=== PATIENT | female | born 1955 | race Caucasian/White ===

== ENCOUNTER 2020-09-26 13:04 | Outpatient (REF) | payer MEDICARE, SELFPAY ==
--- NOTE | ~2020-09-26 | XR_ITS ---
EXAMINATION: XR HAND, LEFT CLINICAL INFORMATION: Fall, trauma, pain COMPARISON: None TECHNIQUE: PA, lateral, and oblique views of the left hand. FINDINGS: There is no fracture or dislocation. The ulnar variance is neutral. There is generalized osteopenia. Mild narrowing lateral carpus is noted at the triscaphe a joint and first carpometacarpal joint. There are variable joint narrowing involving the digits greatest PIP second and third finger and DIP joint second and third finger. 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 XR/XR hand LT min 3V IMPRESSION: 1. No fracture or dislocation. 2. Scattered arthropathy, greatest PIP and DIP joints second and third fingers.
--- NOTE | ~2020-09-26 | XR_ITS ---
EXAMINATION: XR FOOT, LEFT CLINICAL INFORMATION: Fall, trauma, pain COMPARISON: None TECHNIQUE: AP, lateral, and oblique views of the left foot. FINDINGS: There is generalized osteopenia. There is no acute or healing fracture dislocation or destructive process. The retrocalcaneal recess is preserved. No visible ankle capsular effusion. There is variable narrowing PIP and DIP joints without erosive change. There may be a small healed erosion medial base second toe proximal phalanx. XR/XR foot LT min 3V IMPRESSION: 1. Generalized osteopenia. No fracture or dislocation. 2. Variable narrowing PIP and DIP joints. Probable small healed avulsion medial base second toe proximal phalanx.
== END 2020-09-26 13:05 | disposition home or self-care (01) ==
LOC: HO.HMGCX 13:04
PROVIDERS: PCP Internal Medicine; Visit Provider Internal Medicine
DX: M79.672 Pain in left foot (principal); M79.642 Pain in left hand; Z91.81 History of falling
CPT/HCPCS: 73130; 73630

== ENCOUNTER 2020-10-19 10:00 | Outpatient (REF) | payer MEDICARE, SELFPAY ==
[2020-10-19 11:45] LABS: MANUAL DIFF FLAG NO
[2020-10-19 12:06] LABS: Basophils Absolute Auto 0.1 X10*3/uL (0.0-0.2); Basophils Percent Auto 1.3 % (0-2); Eosinophils Absolute Auto 0.3 X10*3/uL (0.0-0.4); Eosinophils Percent Auto 3.5 % (0-4); Hematocrit 37.4 % (37-47); Hemoglobin 11.8 g/dl (12.0-16.0); Imm Gran Abs Auto 0.02 X10*3/uL (0.00-0.03); Imm Gran Pct Auto 0.3 % (0.0-0.4); Lymphocytes Absolute Auto 1.2 X10*3/uL (1.2-4.9); Lymphocytes Percent Auto 16.7 % (20-40); Mean Corpuscular HGB Conc 31.6 g/dl (31.0-35.0); Mean Corpuscular Volume 95.2 fL (80-98); Mean Platelet Volume 10.1 fL (9.4-12.3); Monocytes Absolute Auto 0.5 X10*3/uL (0.1-1.2); Monocytes Percent Auto 6.9 % (2-11); Neutrophils Absolute Auto 5.1 X10*3/uL (2.0-8.3); Neutrophils Percent Auto 71.3 % (45-73); Platelet Count 267 X10*3/uL (160-400); Red Blood Count 3.93 X10*6/uL (4.20-5.50); Red Cell Distribution Width 12.9 % (11.0-16.0); White Blood Count 7.1 X10*3/uL (4.8-10.8)
[2020-10-19 12:21] LABS: Estimated Average Glucose 171 mg/dL; Hemoglobin A1c % 7.6 %
[2020-10-19 12:42] LABS: Free T4 (Free Thyroxine) 1.08 ng/dL (0.71-1.85); Thyroid Stimulating Hormone 2.06 uIU/mL (0.32-4.0)
[2020-10-19 12:56] LABS: Alanine Aminotransferase 12 U/L (0-31); Albumin Level 3.9 g/dL (3.5-5.0); Alkaline Phosphatase 92 U/L (39-117); Anion Gap 15 (12-20); Aspartate Amino Transferase 15 U/L (5-31); Bilirubin Total 0.6 mg/dL (0.0-1.0); Blood Urea Nitrogen 28 mg/dL (9-16); Carbon Dioxide 26 mmol/L (22-29); Chloride 106 mmol/L (96-108); Cholesterol 201 mg/dL; Estimated Glomerular Filt Rate 48; Glucose Random 124 mg/dL (60-115); HDL Cholesterol 81 mg/dL; LDL Cholesterol Calculated 111 mg/dl; Potassium 4.3 mmol/L (3.3-5.1); Sodium 143 mmol/L (135-145); Total Protein 7.2 g/dL (6.5-8.0); Triglycerides 48 mg/dL
== END 2020-10-19 10:01 | disposition home or self-care (01) ==
LOC: HO.HMGCLDS 10:00
PROVIDERS: PCP Internal Medicine; Visit Provider Internal Medicine
DX: R53.83 Other fatigue (principal); E03.9 Hypothyroidism, unspecified; E78.00 Pure hypercholesterolemia, unspecified
CPT/HCPCS: 36415; 80053; 80061; 83036; 84439; 84443; 85025

== ENCOUNTER 2022-04-03 11:00 | Outpatient (RCR) | payer MEDICARE, SELFPAY | END 2022-04-03 12:04 | disposition home or self-care (01) | LOC: HO.PT 11:00 | PROVIDERS: PCP Internal Medicine; Visit Provider Podiatrist | DX: S93.492S Sprain of other ligament of left ankle, sequela (principal) | CPT/HCPCS: 97110; 97112; 97140; 97162 ==

== ENCOUNTER 2022-07-17 08:51 | Outpatient (REF) | payer MEDICARE, SELFPAY ==
[2022-07-17 11:23] LABS: Hematocrit 39.6 % (37.0-47.0); Hemoglobin 12.6 g/dl (12.0-16.0); Mean Corpuscular HGB Conc 31.8 g/dl (31.0-35.0); Mean Corpuscular Hemoglobin 29.3 pg (27.0-33.0); Mean Corpuscular Volume 92.1 fL (80.0-98.0); Mean Platelet Volume 10.7 fL (9.4-12.3); Platelet Count 272 X10*3/uL (160-400); Red Cell Distribution Width 12.8 % (11.0-16.0); White Blood Count 8.4 X10*3/uL (4.8-10.8)
[2022-07-17 11:49] LABS: Estimated Average Glucose 243 mg/dL; Hemoglobin A1c % 10.1 %
[2022-07-17 12:18] LABS: Alanine Aminotransferase 12 U/L (0-31); Albumin Level 3.8 g/dL (3.5-5.0); Alkaline Phosphatase 84 U/L (39-117); Anion Gap 16 (12-20); Aspartate Amino Transferase 15 U/L (5-31); Bilirubin Total 0.6 mg/dL (0.0-1.0); Blood Urea Nitrogen 25 mg/dL (9-16); Calcium 9.3 mg/dL (8.4-10.2); Carbon Dioxide 25 mmol/L (22-29); Chloride 103 mmol/L (96-108); Cholesterol 249 mg/dL; Estimated Glomerular Filt Rate 53; Glucose Fasting 221 mg/dL (60-99); HDL Cholesterol 71 mg/dL; LDL Cholesterol Calculated 162 mg/dl; Potassium 4.4 mmol/L (3.3-5.1); Sodium 140 mmol/L (135-145); Triglycerides 84 mg/dL
[2022-07-17 12:24] LABS: Free T4 (Free Thyroxine) 1.26 ng/dL (0.71-1.85); Thyroid Stimulating Hormone 3.55 uIU/mL (0.32-4.0)
== END 2022-07-17 08:52 | disposition home or self-care (01) ==
LOC: HO.HMGCLDS 08:51
PROVIDERS: PCP Internal Medicine; Visit Provider Internal Medicine
DX: Z13.89 Encounter for screening for other disorder (principal)
CPT/HCPCS: 36415; 80053; 80061; 83036; 84439; 84443; 85027

== ENCOUNTER 2022-11-14 10:10 | Outpatient (REF) | payer MEDICARE, SELFPAY ==
[2022-11-14 11:31] LABS: Estimated Average Glucose 171 mg/dL; Hemoglobin A1c % 7.6 %
== END 2022-11-14 10:11 | disposition home or self-care (01) ==
LOC: HO.HMGCLDS 10:10
PROVIDERS: PCP Internal Medicine; Visit Provider Internal Medicine
DX: E11.9 Type 2 diabetes mellitus without complications (principal)
CPT/HCPCS: 36415; 83036

== ENCOUNTER 2022-12-04 11:22 | Outpatient (REF) | payer MEDICARE, SELFPAY ==
[2022-12-04 13:54] LABS: Cholesterol 219 mg/dL; HDL Cholesterol 84 mg/dL; LDL Cholesterol Calculated 122 mg/dl; Triglycerides 66 mg/dL
== END 2022-12-04 11:23 | disposition home or self-care (01) ==
LOC: HO.HMGCLDS 11:22
PROVIDERS: PCP Internal Medicine; Visit Provider Internal Medicine
DX: E03.9 Hypothyroidism, unspecified (principal)
CPT/HCPCS: 36415; 80061

== ENCOUNTER 2023-09-05 09:22 | Outpatient (REF) | payer MEDICARE, SELFPAY ==
[2023-09-05 10:25] LABS: MANUAL DIFF FLAG NO
[2023-09-05 10:45] LABS: Basophils Absolute Auto 0.1 X10*3/uL (0.0-0.2); Basophils Percent Auto 1.1 % (0-2); Eosinophils Absolute Auto 0.5 X10*3/uL (0.0-0.4); Eosinophils Percent Auto 6.3 % (0-4); Hematocrit 41.9 % (37.0-47.0); Hemoglobin 13.3 g/dl (12.0-16.0); Imm Gran Abs Auto 0.03 X10*3/uL (0.00-0.03); Imm Gran Pct Auto 0.4 % (0.0-0.4); Lymphocytes Absolute Auto 1.3 X10*3/uL (1.2-4.9); Lymphocytes Percent Auto 18.2 % (20-40); Mean Corpuscular HGB Conc 31.7 g/dl (31.0-35.0); Mean Corpuscular Hemoglobin 29.2 pg (27.0-33.0); Mean Corpuscular Volume 92.1 fL (80.0-98.0); Mean Platelet Volume 10.3 fL (9.4-12.3); Monocytes Absolute Auto 0.6 X10*3/uL (0.1-1.2); Monocytes Percent Auto 7.9 % (2-11); Neutrophils Absolute Auto 4.8 x10*3/uL (2.0-8.3); Neutrophils Percent Auto 66.1 % (45-73); Platelet Count 264 X10*3/uL (160-400); Red Blood Count 4.55 X10*6/uL (4.20-5.50); Red Cell Distribution Width 13.2 % (11.0-16.0); White Blood Count 7.3 X10*3/uL (4.8-10.8)
[2023-09-05 11:06] LABS: Estimated Average Glucose 177 mg/dL; Hemoglobin A1c % 7.8 % (<6.0)
[2023-09-05 11:11] LABS: Alanine Aminotransferase 13 U/L (0-31); Albumin Level 3.8 g/dL (3.5-5.0); Alkaline Phosphatase 90 U/L (39-117); Anion Gap 15 (12-20); Aspartate Amino Transferase 17 U/L (5-31); Bilirubin Total 0.3 mg/dL (0.0-1.0); Blood Urea Nitrogen 31 mg/dL (9-16); Calcium 9.4 mg/dL (8.4-10.2); Carbon Dioxide 24 mmol/L (22-29); Chloride 106 mmol/L (96-108); Cholesterol 219 mg/dL (<200); Estimated Glomerular Filt Rate 48; Glucose Fasting 242 mg/dL (60-99); HDL Cholesterol 72 mg/dL (>40); LDL Cholesterol Calculated 134 mg/dL (<100); Potassium 4.6 mmol/L (3.3-5.1); Sodium 140 mmol/L (135-145); Total Protein 7.5 g/dL (6.5-8.0); Triglycerides 69 mg/dL (<150)
[2023-09-05 11:31] LABS: Free T4 (Free Thyroxine) 0.97 ng/dL (0.71-1.85); Thyroid Stimulating Hormone 3.87 uIU/mL (0.32-4.0)
== END 2023-09-05 09:23 | disposition home or self-care (01) ==
LOC: HO.HMGCLDS 09:22
PROVIDERS: PCP Internal Medicine; Visit Provider Internal Medicine
DX: Z00.00 Encounter for general adult medical examination without abnormal findings (principal); E11.9 Type 2 diabetes mellitus without complications; R53.83 Other fatigue
CPT/HCPCS: 36415; 80053; 80061; 83036; 84439; 84443; 85025

== ENCOUNTER 2023-12-26 14:05 | Outpatient (REF) | payer MEDICARE, SELFPAY ==
[2023-12-26 16:26] LABS: Estimated Average Glucose 177 mg/dL; Hemoglobin A1c % 7.8 % (<6.0)
== END 2023-12-26 14:06 | disposition home or self-care (01) ==
LOC: HO.HMGCLDS 14:05
PROVIDERS: PCP Internal Medicine; Visit Provider Internal Medicine
DX: E11.9 Type 2 diabetes mellitus without complications (principal)
CPT/HCPCS: 36415; 83036

== ENCOUNTER 2024-05-05 10:12 | Outpatient (REF) | payer MEDICARE, SELFPAY ==
[2024-05-05 13:42] LABS: Estimated Average Glucose 154 mg/dL; Hemoglobin A1C 155.2492 umol/L; Total Hemoglobin (HGBA1C) 2930.7994 umol/L
== END 2024-05-05 10:13 | disposition home or self-care (01) ==
LOC: HO.HMGCLDS 10:12
PROVIDERS: PCP Internal Medicine; Visit Provider Internal Medicine
DX: E11.9 Type 2 diabetes mellitus without complications (principal)
CPT/HCPCS: 36415; 83036

== ENCOUNTER 2024-08-27 09:42 | Outpatient (REF) | payer MEDICARE, SELFPAY ==
--- OUTSIDE RECORDS SUMMARY | 2024-08-27 10:14 | XMS_ITS ---
[facility] Address [address] [place] [address] Care Team Providers Care Buttonhole Maker Name Role Phone Nic Mcghee MD Primary Care Provider Unavailab Lucy Sprague Unavailable [phone] Demetrius Whiteside Unavailable [phone] Allergies No Known Allergies REASON FOR VISIT Foot pain Medications Medication SIG (Take, Route, Frequency, Duration) Notes Start Date End Date Status Extra Depth Diabetic Shoes with 3 Pair Custom heat-molded multi-density innersoles for 1 year Dx: Active Zinc Active Levoxyl Active Physical Therapy . . . 2-3x/week for 3- 4 weeks Active Insulin 12 units Active Vitamin D3 Active Social History Tobacco Use: Social History Observation Description Date Details (start date - stop date) Never Smoker NA - NA Tobacco Use/Smoking Question Answer Notes Are you a: nonsmoker Additional Findings: Tobacco Non-User Current no n-smoker Alcohol Screen Question Answer Notes Did you have a drink containing alcohol in the p ast year? No Points 0 Interpretation Negative Tobacco use other than smoking: Question Answer Notes Are you an other tobacco user? No Vital Signs Height 6 ft in 12/03/2023 Weight 240 lbs 12/03/2023 BMI 32.55 kg/m2 12/03/2023 Blood pressure systolic 120 mm Hg 12/03/19 24 Blood pressure diastolic 80 mm Hg 024 Encounters Encounter Location Date Provider Diagnosis [facility] [address] [place] [address] 12/03/2023 Demetrius Whiteside Type 1 diabetes mellitus with diabetic polyneuropathy E10.42 ; Pain in left toe(s) M79.675 ; Pain in left foot M79.672 ; Lymphedema I89.0 and Contusion of left foot, initial encounter S90.32XA Assessments Encounter Date Diagnosis (ICD Code) Assessment Notes Treatment Notes Treatment Clinical Notes Section Notes 12/03/2023 Type 1 diabetes mellitus with diabetic polyneuropathy (ICD-10 - E10.42) 12/03/2023 Pain in left toe(s) (ICD-10 - M79.675) 12/03/2023 Pain in left foot (ICD-10 - M79.672) 12/03/2023 Lymphedema (ICD-10 - I89.0) 12/03/2023 Contusion of left foot, initial encounter (ICD-10 - S90.32XA) Plan Of Treatment Medication Medication Name Sig Start Date Stop Date Notes Extra Depth Diabetic Shoes w ith 3 Pair Custom heat-molded multi-density innersoles for 1 year Dx: Pending Test Test Name Order Date X ray : Foot, left 3V 12/03/2023 Next Appt Details Follow Up: prn, Reason: Provider Name:Demetrius Whiteside, 10/27/2024 10:15:00 AM, [address] [place] [address], [id number], Provider Name:Lucy walker, 10/28/2024 10:00:00 AM, [address] [place] [address], [id number], Progress Notes * Jossie YEBOAHDOB:[birth year] (68 yo F)Acc No.[id number]:12/03/2023 Progress Note Patient:?Jossie Yeboah Provider:?Demetrius Whiteside DPM :1955???Age:68 Y???Sex:Female D ate:12/03/2023 Address:[address] [place], [id number] Pcp:Nic Mcghee MD Subjective: * Chief Complaints: * ???Foot pain * HPI: ???Foot Pain:?Nature:?swelling, tenderness, brusing.?Location?Great toe joint, Left .?Duration:?1-2 days.?Onset/Cause:?trauma [ stubbed toe against curbing on 12/01/23].?Course:?worse.?Aggrevated:?any pressure.?Treatments:?rest.?Quality/Severity?moderate, severe.? pt seen urgently today. * ROS:?General/Constitutional:?Nausea?denies, denies.?Vomiting?denies, denies.?Hunger Thirst?denies, denies.?Loss appetite?denies, denies.?Chills?denies, denies.?Fatigue?denies, denies.?Fever?denies, denies.?Night Sweats denies, denies.?Unexplained weight loss?denies, denies.?Unexplained weight gain?denies.?Ophthalmologic:?Blurred vision?denies.?Red eye?denies.?HEENTM:?Dentures?denies, denies.?Dizziness?denies, denies.?Glasses/contacts?admits, denies.?Retinopathy?denies, denies.?Blurred/double vision?denies, denies.?TMJ?denies, denies.?Discharge/drainage?denies, denies.?Implants?denies, denies.?Sore throat?denies.?Dental implants?denies.?Hard of hearing ?denies, denies.?Difficulty chewing/swallowing/speaking?denies, denies.?Nose bleeds?denies, denies.?Sore mouth?denies, denies.?Swollen glands?denies.?Respiratory:?On Oxygen?denies, denies.?Pneumonia/pleurisy?denies, denies.?Bronchitis?denies, denies.?Emphysema?denies, denies.?Coughing?denies, denies.?Cough blood?denies, denies.?Shortness of breath?denies, denies.?Wheezing?denies, denies.?Cardiovascular:?Pacemaker?denies, denies.?MVP?denies, denies.?WPW?denies, denies.?CHF?denies, denies.?Heart attack?denies, denies.?Septal defect?denies, denies.?Rapid beat?denies, denies.?Chest pain ?denies, denies.?Atrial Fib.?denies, denies.?Murmur/Palpitations?denies, denies.?Gastrointestinal:?Hemorrhoids?denies, denies.?Stomach/Abdominal pain?denies, denies.?Dark blood stool?denies, denies.?Irritable bowel ?denies, denies.?Constipation?denies, denies.?Diarrhea?denies, denies.?Vomiting?denies.?Hematology:?Swelling?denies, denies.?Clots?denies.?Varicose Veins?denies.?Bruising?denies, denies.?Bleeding problem?denies, denies.?Genitourinary:?Blood urine?denies, denies.?Frequent/Painfu/urination/bladder control?denies, denies.?Kidney stones?denies, denies.?Infection (UTI)?denies, denies.?Nephropathy?denies, denies.?sex trans dis (STD)?denies.?Prostate?denies.?Musculoskeletal:?Hammertoes?denies, denies.?Bunions?denies, denies.?Scoliosis/kyphosis?denies.?Back Pain?denies.?Muscle Cramps/ Resting?denies.?Muscle cramps / walking?denies, denies.?Generalized aches and pains?denies, denies.?Weakness?denies, denies.?Integ.:?Kitchen?denies, denies.?Scars?denies, denies.?Corns/calluses?denies, denies.?Ingrown nails?denies, denies.?Painful nails?denies, denies.?Open Sores?denies.?Rashes?denies, denies.?Neurologic:?Difficulty sleeping?denies, denies.?Bipolar?denies.?Brain disorder?denies, denies.?Numbness?denies.?Balance trouble?denies, denies.?Confusion?denies, denies.?Fainting/blackouts?denies, denies.?Headache?denies.?Tingling?denies.?Tremors?denies, denies.? * Medical History:? * Surgical History:?infection 01/29/2019dental 06/2021 * Hospitalization/Major Diagno stic Procedure:?Denies Past Hospitalization * Family History:?Mother: dece ased.?Father: .? * Social History:?Tobacco Use:?Tobacco Use/Smoking?Are you a:?nonsmoker ?Additional Findings: Tobacco Non-User?Current non-smoker ?Tobacco use other than smoking?Are you an other tobacco user??No ???Drugs/Alcohol:?Drugs?Have you used drugs other than those for medical reasons in the past 12 months??No ?Alcohol Screen?Did you have a drink containing alcohol in the past year??No ?Points?0 ?Interpretation?Negative ???Miscellaneous:?Caffeine: yes, coffee, frequency: unknown. ?Exercise: hght walking. ?Marital status: . ?Occupation: retired. * Medications:?TakingExtra Dep th Diabetic Shoes with 3 Pair Custom heat-molded multi-density innersoles for 1 year Dx:Physical Therapy . . . . 2-3x/weekInsulin , Notes: 12 unitsLevoxyl Vitamin D3 Zinc Medication List reviewed and reconciled with the patientTaking Extra Depth Diabetic Shoes with 3 Pair Custom heat-molded multi-density innersoles for 1 year Dx:Taking Physical Therapy . . . . 2-3x/weekTaking Insulin , Notes: 12 unitsTaking Levoxyl Taking Vitamin D3 Taking Zinc Medication List reviewed and reconciled with the patient * Allergies:?N.K.D.A.yes[Aller gies Verified] Objective: * Vitals:?Ht: 6 ft, Wt:240, BM I:32.55, Shoe size:11, BP:120/80 mm Hg, BS:140. * ???Past Orders: ???Lab:HEMOGLOBIN A1C (GLYCO HEMOGLOBIN) (Order Date - 10/27/2023) (Collection Date - 08/19/2023) ? Value Reference Range ?HEMOGLOBIN A1C (HH) 7.8 * Examination: ???Ophthalmology Referral: ?DIABETES EYE EXAM?Diabetic Retinopathy Screening:?No 2018?Neurological: ?SENSORY:? Neurological exam demonstrates, reduced light touch sensation, reduced sharp/dull pin prick discrimination , reduced vibration sensation, 5.07 monofilament test performed at plantar aspects of 5 varied sites per foot shows sensation, reduced , at Forefoot, at Midfoot, B/L, Neurological exam demonstrates pop dorsum left first mtpj with extensive bruising and edema noted.?TINEL'S COMPRESSION:?Negative tarsal tunnel, shai pedis, and medial calcaneal nerves B/L.?BABINSKI REFLEX:?absent.?Vascular: ?DP PULSES:? 0/4, B/L.?PT PULSES:? 0/4, B/L.?CAPILLARY FILL TIME:?3 secs. per digit, B/L.?SKIN TEMPERTURE GRADIENT OF THE LOWER EXTERMITIES:?warm to cool, proximal to distal, B/L.?HAIR GROWTH/TEXTURE/ELASTICITY/TURGOR:?normal, B/L.?PIGMENTATION:?normal, B/L.?EDEMA:? 3/4, non-pitting, B/L, Feet, Ankle(s), Leg(s).?TELANGECTASIA:?absent.?VARICOSITIES:?absent.?Nails: ?NAILS are:?Elongated, overgrown, dystrophic, lytic, greater than 3mm thick, discolored and friable with crumbly malodorous subungual debris, with dull to no pain on palpation due to neuropathy, 1-5 B/L.?Dermatologic: ?SKIN FINDINGS:? Skin exam reveals Keratotic lesion(s) located at, Plantar, SUB MTH (s), 5, Left , Skin exam reveals Keratotic lesion(s) located at, SUB MTH (s), 1, 5, Right , Skin shows sign(s) of, bruising and swelling left first mtpj with skin intact.?General Examination: ?GENERAL APPEARANCE:?pleasant, alert, well nourished, well developed, well hydrated, with good attention to hygene/body habitus, and in no acute distress.?ORIENTED:?person,place, and time.?FOOT EXAM:?Lower Extremity Neurological Exam performed:?Yes ?Visual exam of foot performed:?Yes ?Date?10/27/2023 ?Sensory testing performed:?sensations diminished ?Pedal pulse taking performed:?absent?Neuroma Pain: ?PALPATION:?No interspace pain noted on palpation.?Orthopedic: ?MUSCLE STRENGTH:?5/5 all groups in a symmetrical fashion , B/L.?FOOT MORPHOLOGY:? Pes Planus structure, LEFT.?TAILOR'S BUNION:? Prominent, painful, inflammed 5th MTH/MPJ, LEFT.?X-Rays - IMAGING REPORT: ?Clinical Indication(s):? Evaluate for Fracture.?Views:? 3 views of Foot, LEFT.?Findings:? dorsal degenerative changes of the tarsal joints.?Foot structure:? reveals excess pronation with, anterior break in cyme line.?Fracture:? Negative fractures identified.? Assessment: * Assessment: 1.?Pain in left toe(s) - M79 .675?2.?Type 1 diabetes mellitus with diabetic polyneuropathy - E10.42 (Primary)?3.?Pain in left foot - M79.672?4.?Lymphedema - I89.0?5.?Contusion of left foot, initial encounter - S90.32XA? Plan: * Treatment: 2.?Pain in left foot?Imaging: X ray : Foot, left 3V * Procedure Codes:?46803 X-RAY EXAM OF LEFT FOOT 3V, Modifiers: 26 , LT * Preventive Medicine:? ??Counseling:?Discussion:?-14: Office or other outpatient visit for the evaluation and management of an established patient, which required a medically appropriate history and/or examination and MODERATE level of DECISION MAKING for: 1 OR MORE CHRONIC PROBLEM(S) THATS WORSENING, 2 STABLE CHRONIC PROBLEMS, A NEWLY DIAGNOSED PROBLEM WITH UNCERTAIN PROGNOSIS, AN ACUTE COMPLICATED INJURY WITH MULTIPLE TREATMENT OPTIONS, OR AN ACUTE PROBLEM WITH ACCOMPANYING SYSTEMIC SYMPTOMS, THAT POSE(S) A MODERATE RISK OF MORBIDITY. THIS CONDITION MAY ALSO INCLUDE RX DRUG MANAGEMENT, OR A DECISON FOR MINOR SURGERY. The visit on the day of the encounter encompassed interpreting the data and educating the patient as to the nature of their condition, treatment options available according to their individual PMH, meds, allergies, and overall health/living conditions, as well as any potential risks or complications that may occur from a failure to adhere to, and participate in, the recommended course of therapy. The discussion included a complete verbal, and/or written explanation of the examination results, any x-rays taken, the proposed diagnosis, and outline of the treatment plan. A schedule for future care needs was also explained. The patient verbalized an understanding of the instructions at this time and agreed to be an active participant in their treatment. If the patient should think of any questions or concerns after the visit, I have encouraged the patient to call the office.?P.R.I.C.E.:?The patient was counseled on the use of P.R.I.C.E. and NSAIDS (if well tolerated) to aid in the recovery from their painful condition.? * Follow Up:?prn * Images: * Sign off status: Completed true * Provider:?Demetrius Whiteside DPM Date:? 024 Generated for Jose alfonso/Cee/Antonieta on:?08/27/2024 10:14 AM EDT History and Physical Notes * HPI (History of Present Illness) Category Sub-Category Detail Notes Category Not es Foot Pain Aggrevated: any pressure pt seen urgent ly today Onset/Cause: trauma [ stubbed toe against curbing on 12/01/23] Course: worse Duration: 1-2 days Nature: swelling, tenderness , brusing Treatments: rest Quality/Severity moderate, severe Location Great toe joint, Lef t Examination Category Sub-Category Detail Notes Category Not es Neuroma Pain PALPATION: No interspace pain noted on palpation Neurological SENSORY: Neurological exa m demonstrates, reduced light touch sensation, reduced sharp/dull pin prick discrimination , reduced vibration sensation, 5.07 monofilament test performed at plantar aspects of 5 varied sites per foot shows sensation, reduced , at Forefoot, at Midfoot, B/L, Neurological exam demonstrates pop dorsum left first mtpj with extensive bruising and edema noted BABINSKI REFLEX: absent TINEL'S COMPRESSION: Negative tarsal daya brenda, shai pedis, and medial calcaneal nerves B/L Dermatologic SKIN FINDINGS: Skin exam reveal s Keratotic lesion(s) located at, Plantar, SUB MTH (s), 5, Left , Skin exam reveals Keratotic lesion(s) located at, SUB MTH (s), 1, 5, Right , Skin shows sign(s) of, bruising and swelling left first mtpj with skin intact Orthopedic FOOT MORPHOLOGY: Pes Planus structure, LE FT TAILOR'S BUNION: Prominent, painful, inflammed 5th MTH/MPJ, LEFT MUSCLE STRENGTH: 5/5 all groups in a symmetrical fashion , B/L General Examination GENERAL APPEARANCE: pleasant , alert, well nourished, well developed, well hydrated, with good attention to hygene/body habitus, and in no acute distress FOOT EXAM: Lower Extremity Neurological Exa m performed:: Yes Visual exam of foot performed:: Yes Date: 10/27/2023 Sensory testing performed:: sensations d iminished Pedal pulse taking performed:: absent ORIENTED: person,place, and ti me Ophthalmology Referral DIABETES EYE EXAM Diabetic Reti nopathy Screening:: No 2017 Vascular DP PULSES (B): 0/4, B/L PT PULSES (B): 0/4, B/L CAPILLARY FILL TIME: 3 secs. per digit, B/L TEMPERTURE GRADIENT (C): warm to cool, p roximal to distal, B/L TROPHIC CONDITION-TEXTURE/ELASTICITY/TURGOR/HAIR GROWTH (B): normal, B/L EDEMA (C): 3/4, non-pitting, B/ L, Feet, Ankle(s), Leg(s) TELANGECTASIA: absent VARICOSITIES: absent PIGMENTATION: normal, B/L Nails NAILS are: Elongated, overg rown, dystrophic, lytic, greater than 3mm thick, discolored and friable with crumbly malodorous subungual debris, with dull to no pain on palpation due to neuropathy, 1-5 B/L X-Rays - IMAGING REPORT Findings: dorsal d egenerative changes of the tarsal joints Fracture: Negative fractures i dentified Foot structure: reveals excess prona tion with, anterior break in cyme line Views: 3 views of Foot, LEF T Clinical Indication(s): Evaluate for Fra cture
--- OUTSIDE RECORDS SUMMARY | 2024-08-27 10:14 | XMS_ITS ---
[facility] Organization [facility] Address [address] [place] [address] Care Team Providers Care Leather Toggler Name Role Phone Nic Mcghee MD Primary Care Provider Unavailab Lucy Sprague Unavailable [phone] Demetrius Whiteside Unavailable [phone] Allergies No Known Allergies REASON FOR VISIT Painful nail(s) aggrevated by shoes and causing difficulty standing/walking. Medications Medication SIG (Take, Route, Frequency, Duration) Notes Start Date End Date Status Physical Therapy . . . 2-3x/week for 3- 4 weeks Active Insulin 12 units Active Levoxyl Active Zinc Active Extra Depth Diabetic Shoes with 3 Pair Custom heat-molded multi-density innersoles for 1 year Dx: Active Vitamin D3 Active Social History Tobacco [...] No Vital Signs Height 6 ft in 10/27/2023 Weight 240 lbs 10/27/2023 BMI 32.55 kg/m2 10/27/2023 Blood pressure systolic 120 mm Hg 10/27/19 24 Blood pressure diastolic 80 mm Hg 024 Encounters Encounter Location Date Provider Diagnosis [facility] [address] [place] [address] 10/27/2023 Demetrius Whiteside Type 1 diabetes mellitus with diabetic polyneuropathy E10.42 ; Pain in right toe(s) M79.674 ; Tinea unguium B35.1 ; Pain in left toe(s) M79.675 ; Pain in left foot M79.672 ; Pain in right foot M79.671 and Lymphedema I89.0 Assessments Encounter Date Diagnosis (ICD Code) Assessment Notes Treatment Notes Treatment Clinical Notes Section Notes 10/27/2023 Type 1 diabetes mellitus with diabetic polyneuropathy (ICD-10 - E10.42) 10/27/2023 Pain in right toe(s) (ICD-10 - M79.674) 10/27/2023 Tinea unguium (ICD-10 - B35.1) 10/27/2023 Pain in left toe(s) (ICD-10 - M79.675) 10/27/2023 Pain in left foot (ICD-10 - M79.672) 10/27/2023 Pain in right foot (ICD-10 - M79.671) 10/27/2023 Lymphedema (ICD-10 - I89.0) Plan Of Treatment Medication Medication Name Sig Start Date Stop Date Notes Physical Therapy . . . 2-3x/week for 3- 4 weeks Extra Depth Diabetic Shoes w ith 3 Pair Custom heat-molded multi-density innersoles for 1 year Dx: Next Appt Details Follow Up: 1 Year, Reason: Provider Name:Demetrius Meme Whiteside, 10/27/2024 10:15:00 AM, [address] [place] [address], [phone], Provider Name:Lucy walker, 10/28/2024 10:00:00 AM, [address] [place] [address], [phone], Procedure Notes * Category Sub-Category Detail Notes Debride Nail 6-10 Nail debridement Nail debridem ent performed extensively to reduce/remove overall nail length and girth, subungual debris, and necrotic tissue, by manual and electrical means with use of a nail nipper and/or dremel, to more viable healthy nail plate or bed tissue 6-10. Silver nitrate used for any petechial bleeding as necessary. Patient chooses, no pharmaceutical tx (12583) Keratoma Treatment Parring or Cutting o f Benign Hyperkeratotic Lesion(s) 83565 (2-4 Lesions) - The Benign hyperkeratotic lesions, as described above were pared, and/or cut utilizing a sterile #15 blade, tissue nippers, and/or dremel Progress Notes * Jossie YEBOAHDOB:[birth year] (68 yo F)Acc No.[id number]:10/27/2023 Progress Note Patient:?Jossie Yeboah Provider:?Demetrius Whiteside DPM :1955???Age:68 Y???Sex:Female D ate:10/27/2023 Address:[address] [place], [place] Pcp:Nci Mcghee MD Subjective: * Chief Complaints: * ??? Painful nail(s) aggrevat ed by shoes and causing difficulty standing/walking. * HPI: ???At Risk footcare:?Pt States Last PCP Visit:?Date?08/21/2022 ???Foot Pain:?Nature:?tenderness, throbbing.?Location?Outside, Forefoot, Left .?Duration:?several years.?Course:?improved.?Aggrevated:?comp stockings.?Treatments:?comp stockings, physical therapy.?Quality/Severity?mild.? * ROS:?General/Constitutional:?Nausea?denies.?Vomiting?denies.?Hunger Thirst?denies.?Loss appetite?denies.?Chills?denies.?Fatigue?denies.?Fever?denies.?Night Sweats?denies.?Unexplained weight loss?denies.?Unexplained weight gain?denies.?HEENTM:?Dentures?denies.?Dizziness?denies.?Glasses/contacts?admits.?Retinopathy?de nies.?Blurred/double vision?denies.?TMJ?denies.?Discharge/drainage?denies.?Implants?denies.?Sore throat?denies.?Dental implants?denies.?Hard of hearing ?denies.?Difficulty chewing/swallowing/speaking?denies.?Nose bleeds?denies.?Sore mouth?denies.?Respiratory:?On Oxygen?denies.?Pneumonia/pleurisy?denies.?Bronchitis?denies.?Emphysema?denies.?C oughing?denies.?Cough blood?denies.?Shortness of breath?denies.?Wheezing?denies.?Cardiovascular:?Pacemaker?denies.?MVP?denies.?WPW?denies.?CHF?denies.?Heart attack?denies.?Septal defect?denies.?Rapid beat?denies.?Chest pain ?denies.?Atrial Fib.?denies.?Murmur/Palpitations?denies.?Gastrointestinal:?Hemorrhoids?denies.?Stomach/Abdominal pain?denies.?Dark blood stool?denies.?Irritable bowel ?denies.?Constipation?denies.?Diarrhea?denies.?Hematology:?Swelling?denies.?Clots?denies.?Varicose Veins?denies.?Bruising?denies.?Bleeding problem?denies.?Genitourinary:?Blood urine?denies.?Frequent/Painfu/urination/bladder control?denies.?Kidney stones?denies.?Infection (UTI)?denies.?Nephropathy?denies.?sex trans dis (STD)?denies.?Prostate?denies.?Musculoskeletal:?Hammertoes?denies.?Bunions?denies.?Back Pain?denies.?Muscle Cramps/ Resting?denies.?Muscle cramps / walking?denies.?Generalized aches and pains?denies.?Weakness?denies.?Integ.:?Kitchen?denies.?Scars?denies.?Corns/calluses?denies.?Ingrown nails?denies.?Painful nails?denies.?Open Sores?denies.?Rashes?denies.?Neurologic:?Difficulty sleeping?denies.?Brain disorder?denies.?Numbness?denies.?Balance trouble?denies.?Confusion?denies.?Fainting/blackouts?denies.?Tingling?denies.?Tr emors?denies.? * Medical History:? * Surgical History:?infection 01/29/2019dental 06/2021 * Hospitalization/Major Diagno stic Procedure:?Denies Past Hospitalization * Family History:?Mother: dece ased.?Father: .? * Social History:?Tobacco Use:?Tobacco Use/Smoking?Are you a:?nonsmoker ?Additional Findings: Tobacco Non-User?Current non-smoker ?Tobacco use other than smoking?Are you an other tobacco user??No ???Miscellaneous:?Caffeine: yes, coffee, frequency: unknown. ?Exercise: hght walking. ?Marital status: . ?Occupation: retired. * Medications:?TakingInsulin , Notes: 12 unitsLevoxyl Vitamin D3 Zinc Extra Depth Diabetic Shoes with 3 Pair Custom heat-molded multi-density innersoles for 1 year Dx:Physical Therapy . . . . 2-3x/weekMedication List reviewed and reconciled with the patientTaking Insulin , Notes: 12 unitsTaking Levoxyl Taking Vitamin D3 Taking Zinc Taking Extra Depth Diabetic Shoes with 3 Pair Custom heat-molded multi-density innersoles for 1 year Dx:Taking Physical Therapy . . . . 2-3x/weekMedication List reviewed and reconciled with the patient * Allergies:?N.K.D.A.yes[Aller gies Verified] Objective: * Vitals:?Ht: 6 ft, Wt:240, BM I:32.55, Shoe size:11, BP:120/80 mm Hg, BS:88. * ???Past Orders: ???Lab:HEMOGLOBIN A1C (GLYCO HEMOGLOBIN) [...] at Midfoot, B/L, Neurological exam demonstrates pop AL left ankle.?TINEL'S COMPRESSION:?Negative tarsal tunnel, shai pedis, and medial [...] at, SUB MTH (s), 1, 5, Right .?General Examination: ?GENERAL APPEARANCE:?pleasant, alert, well nourished, well [...] LEFT.?TAILOR'S BUNION:? Prominent, painful, inflammed 5th MTH/MPJ, LEFT.? Assessment: * Assessment: 1.?Type 1 diabetes mellitus with diabetic polyneuropathy - E10.42?2.?Pain in right toe(s) - M79.674?3.?Pain in left toe(s) - M79.675?4.?Tinea unguium - B35.1 (Primary)?5.?Pain in left foot - M79.672?6.?Pain in right foot - M79.671?7.?Lymphedema - I89.0? Plan: * Treatment: 2.?Others? Start Physical Therapy ., ., ., ., 2-3x/week, 3-4 weeks, Dx:, Refills ..?? * Procedures:?Debride Nail 6-10:?Nail debridement?Nail debridement performed extensively to reduce/remove overall nail length and girth, subungual debris, and necrotic tissue, by manual and electrical means with use of a nail nipper and/or dremel, to more viable healthy nail plate or bed tissue 6-10. Silver nitrate used for any petechial bleeding as necessary. Patient chooses, no pharmaceutical tx (78410).?Keratoma Treatment:?Parring or Cutting of Benign Hyperkeratotic Lesion(s)?93694 (2-4 Lesions) - The Benign hyperkeratotic lesions, as described above were pared, and/or cut utilizing a sterile #15 blade, tissue nippers, and/or dremel.? * Procedure Codes:?13166 DEBRI DE NAIL, 6 OR MORE, Modifiers: XS 74232 TRIM SKIN LESIONS, 2 TO 4, Modifiers: XS * Preventive Medicine:? ??Counseling:?Discussion:?-13: Office or other outpatient visit for the evaluation and management of an established patient, which required a medically appropriate history and/or examination and LOW level of DECISION MAKING for: 1 STABLE ACUTE UNCOMPLICATED PROBLEM, 2 OR MORE MINOR PROBLEMS, OR 1 STABLE CHRONIC PROBLEM, THAT POSE(S) A LOW RISK FOR MORBIDITY/MORTALITY. The visit on the day of the [...] have encouraged the patient to call the office.? * Follow Up:?1 Year * Images: * Sign off status: Completed true * Provider:?Demetrius Whiteside DPM Date:? 024 Generated for Printi ng/Faannalisag/eTransmitting on:?08/27/2024 10:14 AM EDT History and Physical Notes * HPI (History of Present Illness) Category Sub-Category Detail Notes Category Not es At Risk footcare Pt States Last PCP Visit: Date: 3 Foot Pain Aggrevated: comp stockings Course: improved Duration: several years Nature: tenderness, throbbin g Treatments: comp stockings, phys ical therapy Quality/Severity mild Location Outside, Forefoot, L eft Examination Category Sub-Category Detail Notes Category Not es Neuroma Pain PALPATION: No interspace pain noted on palpation Neurological SENSORY: Neurological exa m demonstrates, reduced light touch sensation, reduced sharp/dull pin prick discrimination , reduced vibration sensation, 5.07 monofilament test performed at plantar aspects of 5 varied sites per foot shows sensation, reduced , at Forefoot, at Midfoot, B/L, Neurological exam demonstrates pop AL left ankle BABINSKI REFLEX: absent TINEL'S COMPRESSION: Negative tarsal daya brenda, shai pedis, and medial calcaneal nerves B/L Dermatologic SKIN FINDINGS: Skin exam reveal s Keratotic lesion(s) located at, Plantar, SUB MTH (s), 5, Left , Skin exam reveals Keratotic lesion(s) located at, SUB MTH (s), 1, 5, Right Orthopedic FOOT MORPHOLOGY: Pes Planus structure, LE [...] EYE EXAM Diabetic Reti nopathy Screening:: No 2018 Vascular DP PULSES (B): 0/4, B/L PT [...]
--- OUTSIDE RECORDS SUMMARY | 2024-08-27 10:14 | XMS_ITS | Patient Health Record ---
Author Organization [facility] [place] Address [address] [facility] [place] [address] Care Team Providers Care Newspaper Illustrator Name Role Phone Nic Mcghee MD Primary Care Provider Unavailab Lucy Sprague Unavailable [phone] Demetrius Whiteside Unavailable [phone] Allergies No Known Allergies Results Component Value Reference Range Notes HEMOGLOBIN A1C (GLYCOHEMOGLO BIN) Reviewed date:10/27/2023 09:49:29 AM Interpretation: Performing Lab: Notes/Report: HEMOGLOBIN A1C (HH) 7.8 Reason For Referral No Information Medications Medication SIG (Take, Route, Frequency, Duration) Notes Start Date End Date Status Extra Depth Diabetic Shoes with 3 Pair Custom heat-molded multi-density innersoles for 1 year Dx: Active Zinc Active Levoxyl Active Vitamin D3 Active Physical Therapy . . . 2-3x/week for 3- 4 weeks Active Insulin 12 units Active Immunizations Vaccine Route Administration Date Status Comme nts Influenza Unknown 11/15/2020 Refused Social History Tobacco Use: Social History Observation [...] Are you an other tobacco user? No Problems Problem Type SNOMED Code ICD Code Onset Dates Problem Status W/U Status Risk Notes Problem Polyneuropathy due to type 2 diabetes mellitus (561410264) Type 2 diabetes mellitus with diabetic polyneuropathy (E11.42) Active confirmed Problem Polyneuropathy due to diabetes mellitus type I (611097954) Type 1 diabetes mellitus with diabetic polyneuropathy (E10.42) Active confirmed Problem 366588517 Lymphedema (I89.0) Active confirmed Vital Signs Blood pressure diastolic 80 mm Hg 12/03/2023 Height 6 ft in 12/03/2023 Blood pressure systolic 120 mm Hg 12/03/2023 Weight 240 lbs 12/03/2023 BMI 32.55 kg/m2 12/03/2023 Encounters Encounter Location Date Provider Diagnosis [address] [address] 10/27/2023 Demetrius Whiteside Type 1 diabetes mellitus with diabetic polyneuropathy E10.42 ; Pain in right toe(s) M79.674 ; Tinea unguium B35.1 ; Pain in left toe(s) M79.675 ; Pain in left foot M79.672 ; Pain in right foot M79.671 and Lymphedema I89.[address] [address] 12/03/2023 Demetrius Whiteside Type 1 diabetes mellitus with diabetic polyneuropathy E10.42 ; Pain in left toe(s) M79.675 ; Pain in left foot M79.672 ; Lymphedema I89.0 and Contusion of left foot, initial encounter S90.32XA [facility] [address] [address] 10/16/2023 [facility] Whiteside [address] [address] 12/03/2023 Demetrius Whiteside Assessments Encounter Date Diagnosis (ICD Code) Assessment Notes Treatment Notes Treatment Clinical Notes Section Notes 10/27/2023 Type 1 diabetes mellitus with diabetic polyneuropathy (ICD-10 - E10.42) 12/03/2023 Pain in left toe(s) (ICD-10 - M79.675) 12/03/2023 Type 1 diabetes mellitus with diabetic polyneuropathy (ICD-10 - E10.42) 12/03/2023 Pain in left foot (ICD-10 - M79.672) 10/27/2023 Pain in right toe(s) (ICD-10 - M79.674) 10/27/2023 Pain in left toe(s) (ICD-10 - M79.675) 10/27/2023 Tinea unguium (ICD-10 - B35.1) 12/03/2023 Lymphedema (ICD-10 - I89.0) 12/03/2023 Contusion of left foot, initial encounter (ICD-10 - S90.32XA) 10/27/2023 Pain in left foot (ICD-10 - M79.672) 10/27/2023 Pain in right foot (ICD-10 - M79.671) 10/27/2023 Lymphedema (ICD-10 - I89.0) Plan Of Treatment Pending Test Test Name Order Date X ray : Foot, left 3V 11/15/2020 X ray : Foot, left 3V 12/03/2023 10818-NIRQ SKIN LESIONS, 2 TO 4 02/22/20 21 Next Appt Details Provider Name:Demetrius Whiteside, 10/27/2024 10:15:00 AM, [address] [place] [address], [phone], Provider Name:Lucy walker, 10/28/2024 10:00:00 AM, [address] [place] [address], [phone], Insurance Providers Payer Name Payer Address Payer Phone Subscriber Number Group Number Insured Name Patient Relationship to Insured Coverage Start Date Coverage End Date A[employer] [address] [place] [phone] [id number] Jossie Melo Self - patient is the insured Medical (General) History Medical History History ICD Code Diabetic type l thyroid Measles Mumps Chicken pox Surgical History Surgery Date(Month/Year) infection 01/29/2019 dental 06/2021
--- OUTSIDE RECORDS SUMMARY | 2024-08-27 10:14 | XMS_ITS ---
Author Organization [facility] Address [address] [place] [address] Care Team Providers Care Director Database Name Role Phone Nic Mcghee MD Primary Care Provider Unavailab Lucy Sprague Unavailable [phone] Demetrius Whiteside [phone] REASON FOR VISIT injured LT grt toe Encounters Encounter Location Date Provider Diagnosis [address] [address] 12/03/2023 Demetrius Whiteside Plan Of Treatment Next Appt Details Provider Name:Demetrius Whiteside, 10/27/2024 10:15:00 AM, [address] [place] [address], [phone], Provider Name:Lucy walker, 10/28/2024 10:00:00 AM, [address] [place] [address], [phone], Progress Notes * Jossie YEBOAHDOB:[birth year] (68 yo F)Acc No.[id number]:12/03/2023 Patient:?KameronDoreneJossie :1955???Age:68 Y???Sex:Female Address:[address] [place] [address] * true * Date:? Generated for Printi ng/Faxing/eTransmitting on:?08/27/2024 10:14 AM EDT
[2024-08-27 13:47] LABS: Estimated Average Glucose 160 mg/dL; Hemoglobin A1C 199.9874 umol/L; Hemoglobin A1c % 7.2 % (<6.0); Total Hemoglobin (HGBA1C) 3641.1364 umol/L
== END 2024-08-27 09:43 | disposition home or self-care (01) ==
LOC: HO.HMGCLDS 09:42
PROVIDERS: PCP Internal Medicine; Visit Provider Internal Medicine
DX: E11.9 Type 2 diabetes mellitus without complications (principal); Z79.4 Long term (current) use of insulin
CPT/HCPCS: 36415; 83036

== ENCOUNTER 2024-10-22 09:14 | Outpatient (REF) | payer MEDICARE, SELFPAY ==
--- OUTSIDE RECORDS SUMMARY | 2024-10-22 09:43 | XMS_ITS | Patient Health Record ---
Author Organization [facility] [place] Address [address] [facility] [place] [address] Care Team Providers Care Instructor Robotics Name Role Phone Nic Mcghee MD Primary Care Provider Unavailab Lucy Sprague Unavailable [phone] Demetrius Whiteside Unavailable [phone] Allergies No Known Allergies Results Component Value [...] Polyneuropathy due to type 2 diabetes mellitus (385271475) Type 2 diabetes mellitus with diabetic polyneuropathy (E11.42) Active confirmed Problem Polyneuropathy due to diabetes mellitus type I (510238400) Type 1 diabetes mellitus with diabetic polyneuropathy (E10.42) Active confirmed Problem 898165498 Lymphedema (I89.0) Active confirmed Vital Signs Blood pressure diastolic 80 mm Hg 12/03/2023 Height 6 ft in 12/03/2023 Blood pressure systolic 120 mm Hg 12/03/2023 Weight 240 lbs 12/03/2023 BMI 32.55 kg/m2 12/03/2023 Encounters Encounter Location Date Provider Diagnosis [address] [address] 10/27/2023 Demetrius Whiteside Type 1 diabetes mellitus with diabetic polyneuropathy E10.42 ; Pain in right toe(s) M79.674 ; Tinea unguium B35.1 ; Pain in left toe(s) M79.675 ; Pain in left foot M79.672 ; Pain in right foot M79.671 and Lymphedema I89.[address] [address] 12/03/2023 Demetrius Whiteside Type 1 diabetes mellitus with diabetic polyneuropathy E10.42 ; Pain in left toe(s) M79.675 ; Pain in left foot M79.672 ; Lymphedema I89.0 and Contusion of left foot, initial encounter S90.32XA [address] [address] 12/03/[address] [address] 10/19/2024 Lucy Anderson Assessments Encounter Date Diagnosis (ICD Code) Assessment [...] X ray : Foot, left 3V 12/03/2023 28063-JGFD SKIN LESIONS, 2 TO 4 02/22/20 Next Appt Details Provider Name:Lucy walker, 12/06/2024 09:30:00 AM, [address] [place] [address], [phone], Insurance Providers Payer Name Payer Address Payer Phone Subscriber Number Group Number Insured Name Patient Relationship to Insured Coverage Start Date Coverage End Date Aetna [address] [place] [phone] [id number] Jossie Melo Self - patient is the insured Medical (General) History Medical History History ICD Code Diabetic type l thyroid Measles Mumps Chicken pox Surgical History Surgery Date(Month/Year) infection 01/29/2019 dental 06/2021
[2024-10-22 13:12] LABS: MANUAL DIFF FLAG NO
[2024-10-22 13:32] LABS: Basophils Absolute Auto 0.1 X10*3/uL (0.0-0.2); Basophils Percent Auto 1.2 % (0-2); Eosinophils Absolute Auto 0.3 X10*3/uL (0.0-0.4); Eosinophils Percent Auto 3.2 % (0-4); Hematocrit 40.6 % (37.0-47.0); Hemoglobin 12.9 g/dl (12.0-16.0); Imm Gran Abs Auto 0.03 X10*3/uL (0.00-0.03); Imm Gran Pct Auto 0.3 % (0.0-0.4); Lymphocytes Absolute Auto 1.1 X10*3/uL (1.2-4.9); Lymphocytes Percent Auto 11.8 % (20-40); Mean Corpuscular HGB Conc 31.8 g/dl (31.0-35.0); Mean Corpuscular Hemoglobin 29.5 pg (27.0-33.0); Mean Corpuscular Volume 92.9 fL (80.0-98.0); Mean Platelet Volume 11.1 fL (9.4-12.3); Monocytes Absolute Auto 0.7 X10*3/uL (0.1-1.2); Neutrophils Absolute Auto 7.2 x10*3/uL (2.0-8.3); Neutrophils Percent Auto 76.5 % (45-73); Platelet Count 252 X10*3/uL (160-400); Red Blood Count 4.37 X10*6/uL (4.20-5.50); Red Cell Distribution Width 14.5 % (11.0-16.0); White Blood Count 9.4 X10*3/uL (4.8-10.8)
[2024-10-22 14:31] LABS: Alanine Aminotransferase 11 U/L (0-31); Alkaline Phosphatase 86 U/L (39-117); Anion Gap 13 (12-20); Aspartate Amino Transferase 23 U/L (5-31); Bilirubin Total 0.4 mg/dL (0.0-1.0); Blood Urea Nitrogen 24 mg/dL (9-16); Carbon Dioxide 28 mmol/L (22-29); Chloride 106 mmol/L (96-108); Cholesterol 194 mg/dL (<200); Estimated Glomerular Filt Rate 45; Glucose Fasting 119 mg/dL (60-99); HDL Cholesterol 76 mg/dL (>40); LDL Cholesterol Calculated 105 mg/dL (<100); Potassium 4.4 mmol/L (3.3-5.1); Sodium 143 mmol/L (135-145); Total Protein 7.6 g/dL (6.5-8.0); Triglycerides 65 mg/dL (<150)
== END 2024-10-22 09:15 | disposition home or self-care (01) ==
LOC: HO.HMGCLDS 09:14
PROVIDERS: PCP Internal Medicine; Visit Provider Internal Medicine
DX: E78.5 Hyperlipidemia, unspecified (principal); R53.83 Other fatigue
CPT/HCPCS: 36415; 80053; 80061; 85025

== ENCOUNTER 2024-12-14 08:55 | Outpatient (AMB) | payer MEDICARE, SELFPAY ==
--- NOTE | 2024-12-14 08:56 | MHC.PC.OV ---
Vital Signs 12/14/24 09:03 12/14/24 09:42 Height 6 ft 0.05 in Weight 296 lb 2 oz BMI 40.1 BP 143/64 H 131/75 Blood Pressure Location Rt brachial Lt brachial Position Sitting Sitting Respiration 20 Pulse 87 Pulse Source Pulse Oximeter Temp 97.3 F Temp Source Temporal Artery Scan Pulse Oximetry (%) 94 Oxygen Delivery Method Room Air Intake Visit Reasons: Est Care/Dr. Mcghee ~ Thyroid, DM Lozenge Maker Required: No Accompanied by: Self / Same As Patient Allergies sulfamethoxazole (From Bactrim) Allergy (Mild, Verified 12/14/24 09:20) Hives trimethoprim (From Bactrim) Allergy (Mild, Verified 12/14/24 09:20) Hives Medication List - Last Reconciled 12/14/24 by Trina Benitez PA-C insulin NPH isoph U-100 human (Novolin N NPH U-100 Insulin isophane) 24 units subcut QAM insulin regular human (Novolin R Regular U-100 Insulin) 6 units subcut TID PRN levothyroxine 75 mcg PO DAILY Tobacco use date assessed: 12/14/24 Fall risk assessment: No Falls in past year Last assessed Fall Risk: 12/14/24 Dental Screening Dental Screen Date: 12/14/24 Did you have a dental visit in the last 12 months?: Yes Did you have a dental problem in the last 6 months where you did not have access to dental care?: No Was dental information given to patient?: Patient has dentist HPI Est Care/Dr. Mcghee ~ Thyroid, DM HPI Details The patient is a 69-year-old female presenting for a new patient appointment as she was a patient of Dr. Sukhwinder benitez. She is presenting with a chronic sore throat. The sore throat began in July and has persisted despite multiple courses of antibiotics, initially diagnosed as tonsillitis. The pain is intermittent, sometimes exacerbated by sleeping on the left side, and occasionally severe under the tongue and at the back of the throat. The patient has a history of hypothyroidism, managed with levothyroxine 75 mcg daily. She also has type 1 diabetes mellitus, managed with insulin therapy, including 24 units of Novolin N NPH daily and 6 units of Novolin R as needed with meals. The patient has chronic kidney disease, with a GFR of 45, which is being monitored regularly. Her recent blood work showed a fasting glucose of 119 mg/dL and an A1c of 7.9%, indicating suboptimal glycemic control. She also has hyperlipidemia, with an LDL cholesterol level of 105 mg/dL, HDL of 76 mg/dL, and total cholesterol of 194 mg/dL. The patient reports edema in her arms and legs. Social History - Nutritional intake includes vitamin D3K2, mushroom complex, black seed oil, and apple cider vinegar for congestion management. [facility] Medical History Obesity, morbid, BMI 40.0-49.9 Dual energy x-ray photon absorptiometry (DEXA) scan declined (~12/14/24) Colonoscopy refused (~12/14/24) Mammogram declined (~12/14/24) Hypothyroidism Hyperlipidemia LDL goal <70 CKD (chronic kidney disease) Edema Type 1 diabetes mellitus with hemoglobin A1c goal of less than 7.0% Throat pain Family History Father Prostate cancer Mother Non Hodgkin's lymphoma H/O kidney removal Social History Housing: House Alcohol intake: current Alcohol intake frequency: does not drink Patient Tobacco Use Status: Never used Tobacco service: No Current occupational status: retired Cognitive needs: No Hearing needs: No Vision needs: Yes (rx glasses) Questionnaire PHQ-9 Over the last 2 weeks, how often have you been bothered by any of the following problems? 1. Little interest or pleasure in doing things: not at all 2. Feeling down, depressed, or hopeless: not at all 3. Trouble falling or staying asleep, or sleeping too much: not at all 4. Feeling tired or having little energy: not at all 5. Poor appetite or overeating: not at all 6. Feeling bad about yourself - or that you are a failure or have let yourself or your family down: not at all 7. Trouble concentrating on things, such as reading the newspaper or watching television: not at all 8. Moving or speaking so slowly that other people could have noticed. Or the opposite - being so fidgety or restless that you have been moving around a lot more than usual: not at all 9. Thoughts that you would be better off or of hurting yourself in some way: not at all Total score: 0 Depression Screening Interpretation: Negative Depression Screening Done: Yes 05663 - PHQ-9 Billing: Yes Source: Developed by Drs. Juan A Levine, Dalia Vaca, Victor M Garcia and colleagues, with an educational brielle from [address]. Thrive Questionnaire Date Thrive assessed: 12/14/24 I am a: Patient What is your living situation today?: I have a steady place to live Within the past 12 months, did the food you bought not last and you didn't have the money to get more?: Never true Within the past 12 months, did you worry whether your food would run out before you got money to buy more?: Never true Do you have trouble paying for medicines?: No Do you have trouble getting transportation to medical appointments?: No Do you have trouble paying your heating and electricity bill?: No Do you have trouble taking care of your child, family member or friend?: No Do you have trouble with day-to-day activities such as bathing, preparing meals, shopping, managing finances, etc.?: No Are you currently unemployed and looking for a job?: No Are you interested in more education?: No Please select the resources that you would like help with: None Currently or been in a relationship where the following occur: No concerns reported THRIVE Score: 0 AUDIT C Alcohol Use Questionnaire (AUDIT-C) 1. How often do you have a drink containing alcohol?: Never 3. How often do you have six or more drinks on one occasion?: Never Total Score: 0 Score Reviewed/Action Taken: No JORGE LUIS-7 AMB Questionnaire JORGE LUIS-7 Date JORGE LUIS - 7 assessed: 12/14/24 Feeling nervous, anxious, or on edge: 0 = Not at all Not being able to stop or control worryin = Not at all Worrying too much about different things: 0 = Not at all Trouble relaxin = Not at all Being so restless that it is hard to sit still: 0 = Not at all Becoming easily annoyed or irritable: 0 = Not at all Feeling afraid as if something awful might happen: 0 = Not at all Total JORGE LUIS-7 score (0-4 normal; 5-9 mild; 10-14 moderate; 15-21 severe): 0 Source: Developed by Drs. Juan A Levine, Dalia Vaca, Victor M Garcia and colleagues, with an educational brielle from [address]. JORGE LUIS-7 Assessment Billing JORGE LUIS-7 Assessment Tool: JORGE LUIS-7 Assessment 11719 Review of Systems Const Details: - General: Denies unintentional weight loss. - HEENT: Reports chronic sore throat since July, intermittent pain under the tongue and back of the throat, denies difficulty swallowing. - Respiratory: Denies dyspnea. - Cardiovascular: Denies chest pain. - Gastrointestinal: Reports use of apple cider vinegar for congestion. - Endocrine: Reports hypothyroidism and type 1 diabetes mellitus. - Musculoskeletal: Reports edema in arms and legs. All systems reviewed & are unremarkable except as noted in HPI and below Physical exam (Primary Care) Vital Signs: Last Vital Signs Temp 97.3 F 12/14/24 09:03 Pulse 87 12/14/24 09:03 Resp 20 12/14/24 09:03 BP 143/64 H 12/14/24 09:03 Pulse Ox 94 12/14/24 09:03 Oxygen Delivery Method Room Air 12/14/24 09:03 Care Plan Goal for BP management: <140/90 at Goal BMI result Body Mass Index 40.1 BMI Assessment/Plan discussion: High BMI High, discussed plan: lifestyle, weight reduction, dietary, physical activity and alcohol moderation Tobacco/Smoking Status: Tobacco use Status Tobacco use date assessed 12/14/24 12/14/24 09:17 Patient Tobacco Use Status Never used Tobacco 12/14/24 09:17 PHQ-9: PHQ-9 Score PHQ-9: Total score 0 12/14/24 09:21 Depression Screening Interpretation: Negative Thrive Assessment: Date of Thrive Assessment Date Thrive assessed 12/14/24 12/14/24 09:17 Currently or been in a relationship where the following occur: No concerns reported Const Other: Appearance: Alert. Oriented X3. No acute distress. Head: Normal external exam. Normocephalic. Atraumatic. Eyes: Pupils are equal, round, and reactive to light. Extraocular movements intact. Conjunctiva and sclera normal. Eyelids normal. Throat: Pharynx normal. Uvula midline. Moist mucous membranes. Normal voice. No signs of an abscess. Patient does have poor dentition throughout. Multiple dental caries and old fractures. Not consistent with gingival abscess, peritonsillar abscess, Jesse's angina. Patient tolerating secretions well. No trismus drooling or stridor is noted. Neck: Normal inspection. Neck supple. Full range of motion. No adenopathy. Thyroid Normal. No meningeal signs. No neck mass noted. Cardiovascular: Normal heart rate and rhythm. Heart sound normal. No murmurs noted. Pulses normal throughout. Blood pressure recorded at 131/75, pulse is 87. Respiratory: No respiratory distress. Painless inspiration. Breath sounds normal. No wheezes/rales/rhonchi noted. Chest nontender. No accessory muscle usage noted or decreased air movement noted. Back: Full range of motion noted. Skin: Skin warm and dry. Normal skin color. Normal skin turgor. No rashes/lesions/lacerations noted. Extremities: No lower extremity pitting edema or upper extremity pitting edema. Extremities exhibit normal range of motion. Neuro: Oriented X 3. No motor deficit. No sensory deficit. Reflexes normal. Results AMB Hemoglobin A1c AMB Hemoglobin A1c 7.9 % Last Edit by LAURYN Durant on 12/14/24 09:40 Results Reviewed Results Reviewed: - Labs: CBC normal, BUN 24, GFR 45, fasting glucose 119 mg/dL, A1c 7.9%, LDL 105 mg/dL, HDL 76 mg/dL, total cholesterol 194 mg/dL. A1c level done in office today Coding Level of Care Code New Pt Level 4 (94910) Complex EM visit Add On G2211 Diagnoses Throat pain R07.0 Type 1 diabetes mellitus with hemoglobin A1c goal of less than 7.0% E10.9 Edema R60.9 CKD (chronic kidney disease) N18.9 Hyperlipidemia LDL goal <70 E78.5 Hypothyroidism E03.9 Mammogram declined Z53.20 Colonoscopy refused Z53.20 Dual energy x-ray photon absorptiometry (DEXA) scan declined Z53.20 Obesity, morbid, BMI 40.0-49.9 E66.01 Additional Codes PHQ-9 - 65368 - PHQ-9 Billing: Yes ([id number]) JORGE LUIS-7 Assessment Billing - JORGE LUIS-7 Assessment Tool: JORGE LUIS-7 Assessment 59037 ([id number]) Time Spent (min) 40 Assessment & Plan Assessment & Plan (1) Throat pain: Comment: Since July 2024; trailed abx's no improvement Code(s): R07.0 - Pain in throat Category: Medical Plan: A CAT scan of the throat is ordered to evaluate the persistent sore throat, which has not improved with antibiotics. The patient is advised to complete blood work prior to the scan to assess kidney function due to the use of contrast dye. (2) Type 1 diabetes mellitus with hemoglobin A1c goal of less than 7.0%: Code(s): E10.9 - Type 1 diabetes mellitus without complications Category: Medical Plan: The patient's A1c has increased to 7.9%, indicating a need for improved glycemic control. The patient is advised to work on dietary modifications to help manage blood glucose levels. A follow-up appointment is scheduled in three months to reassess diabetes management. (3) Edema: Code(s): R60.9 - Edema, unspecified Category: Medical Plan: The patient reports edema in the arms and legs, which will be monitored. (4) CKD (chronic kidney disease): Code(s): N18.9 - Chronic kidney disease, unspecified Category: Medical Plan: The patient's kidney function is being monitored, with a GFR of 45 noted. Blood work is ordered to reassess kidney function prior to the CAT scan. (5) Hyperlipidemia LDL goal <70: Code(s): E78.5 - Hyperlipidemia, unspecified Category: Medical Plan: The patient's lipid profile is reviewed, with LDL at 105 mg/dL and HDL at 76 mg/dL. Dietary recommendations are provided to help manage cholesterol levels. (6) Hypothyroidism: Code(s): E03.9 - Hypothyroidism, unspecified Category: Medical Plan: The patient's thyroid function will be monitored with a new order for thyroid function tests, as previous tests were not conducted. (7) Mammogram declined: Onset Date: ~12/14/24 Code(s): Z53.20 - Procedure and treatment not carried out because of patient's decision for unspecified reasons Category: Medical (8) Colonoscopy refused: Onset Date: ~12/14/24 Code(s): Z53.20 - Procedure and treatment not carried out because of patient's decision for unspecified reasons Category: Medical (9) Dual energy x-ray photon absorptiometry (DEXA) scan declined: Onset Date: ~12/14/24 Code(s): Z53.20 - Procedure and treatment not carried out because of patient's decision for unspecified reasons Category: Medical (10) Obesity, morbid, BMI 40.0-49.9: Code(s): E66.01 - Morbid (severe) obesity due to excess calories Category: Medical Plan: Patient to improve diet and exercise regimen. Condition is chronic and stable continue to monitor. Plan Plan Patient was informed and verbally consented to the use of an ambient scribe for clinic note documentation during this visit. 1. Chronic Sore Throat A CAT scan of the throat is ordered to evaluate the persistent sore throat, which has not improved with antibiotics. The patient is advised to complete blood work prior to the scan to assess kidney function due to the use of contrast dye. 2. Type 1 Diabetes Mellitus The patient's A1c has increased to 7.9%, indicating a need for improved glycemic control. The patient is advised to work on dietary modifications to help manage blood glucose levels. A follow-up appointment is scheduled in three months to reassess diabetes management. 3. Edema The patient reports edema in the arms and legs, which will be monitored. 4. Chronic Kidney Disease The patient's kidney function is being monitored, with a GFR of 45 noted. Blood work is ordered to reassess kidney function prior to the CAT scan. 5. Hyperlipidemia The patient's lipid profile is reviewed, with LDL at 105 mg/dL and HDL at 76 mg/dL. Dietary recommendations are provided to help manage cholesterol levels. 6. Hypothyroidism The patient's thyroid function will be monitored with a new order for thyroid function tests, as previous tests were not conducted. I discussed with the patient the need for a CAT scan to further evaluate her chronic sore throat, emphasizing the importance of completing blood work beforehand to assess kidney function due to the use of contrast dye. We reviewed her recent A1c results, which indicated a need for better glycemic control, and I recommended dietary modifications to help manage her diabetes. I also advised her on the importance of monitoring her thyroid function and lipid levels, and provided dietary recommendations to manage her cholesterol. Orders: Orders Vitamin D 25-OH Total Today Z00.00 - Encounter for general adult medical examination without abnormal findings Magnesium Today Z00.00 - Encounter for general adult medical examination without abnormal findings Vitamin B12 and Folate Today Z00.00 - Encounter for general adult medical examination without abnormal findings CT soft tissue neck w IV con Today R07.0 - Pain in throat Basic Metabolic Panel Today R07.0 - Pain in throat AMB Hemoglobin A1c Today Z13.9 - Encounter for screening, unspecified TSH reflex Free T4 Today Z00.00 - Encounter for general adult medical examination without abnormal findings Complete Blood Count no Diff Today R07.0 - Pain in throat Patient Instructions: - Complete blood work before the CAT scan to check kidney function. - Follow dietary recommendations to help manage blood glucose and cholesterol levels. - Schedule a follow-up appointment in three months to reassess diabetes management.
[2024-12-14 09:03] VITALS: BP 143/64; PULSE 87; RESP 20; TEMP 36.3; O2SAT 94; BMI 40.1
--- OUTSIDE RECORDS SUMMARY | 2024-12-14 09:11 | XMS_ITS | Encounter Summary ---
Author Organization [facility] Address [address] [place] [address] Phone Care Team Providers Care Press Operator Helper Name Role Phone Pcp, Unknown Primary Care Provider Nic Munoz MD Primary Care Provider [phone] Encounter Details Date Type Department Care Team (Late st Contact Info) Description 02/02/2019 Documentation [facility] Infectious Disease Virtual Department [address] [place] [address] [phone] Pcp, Not Required [address] [place] [address] Social History Tobacco Use Types Packs/Day Years Used Date Smoking Tobacco: Never Smokeless Tobacco: Never Alcohol Use Standard Drinks/Week Comments Yes 0 (1 standard drink = 0.6 oz pur e alcohol) social red wine Comments No Sex and Gender Information Value Date Recorded Sex Assigned at Female 01/29/2019 8:47 PM EDT Legal Sex Female 6:50 PM EST Gender Identity Female 01/29/2019 8:47 PM EDT Sexual Orientation Straight 01/29/2019 8: 47 PM EDT documented as of this encounter Plan of Treatment Not on file documented as of this encounter Visit Diagnoses Not on filedocumented in this encounter Additional Health Concerns Infection Onset Date Last Indicated Resolved Time MRSA 02/02/2019 02/02/2019 07/03/2022 1:33 AM EST CoV-Risk 08/02/2024 08/02/2024 08/13/2024 1:21 AM EDT documented as of this encounter Care Teams Press Operator Helper Relationship Specialty Start Date End Date Pcp, Unknown PCP - General 01/29/19 08/01/24 Nic Mcghee MD [address] [place] [phone] PCP - General Internal Medicine 08/02/24 documented as of this encounter Additional Source Comments The information contained in this document represents components of the legal health record. It is not the complete legal health record.[facility]
--- OUTSIDE RECORDS SUMMARY | 2024-12-14 09:11 | XMS_ITS | Patient Health Record ---
Author Organization [facility] Address [address] [place] [address] Care Team Providers Care Skirt Trimmer Name Role Phone Trina Benitez Primary Care Provider Lucy Bautista Unavailable [phone] WhitesideDemetrius Unavailable [phone] Allergies No Known Allergies Results Component Value Reference Range Notes HEMOGLOBIN A1C (GLYCOHEMOGLO BIN) Reviewed date:12/09/2024 03:41:00 PM Interpretation: Performing Lab: Notes/Report: HEMOGLOBIN A1C % (HH) 7.2 Reason For Referral No Information Medications Medication SIG (Take, Route, Frequency, Duration) Notes Start Date End Date Status Physical Therapy . . . 2-3x/week; Duration: 3-4 weeks Not-Taking Zinc Active Vitamin D3 Active Levoxyl Active Extra Depth Diabetic Shoes with 3 Pair Custom heat-molded multi-density innersoles for 1 year Dx: Not-Taking Insulin 12 units Active Immunizations Vaccine Route Administration Date Status Comme nts Influenza Unknown 11/15/2020 Refused Influenza Unknown 12/09/2024 Refused Influenza Unknown 12/09/2024 Refused Social History Tobacco Use: Social History Observation Description Date Details (start date - stop date) Never Smoker NA - NA Tobacco use other than smoking: Question Answer Notes Are you an other tobacco user? No Tobacco Control (Standard) Question Answer Notes Tobacco use: Nonsmoker Additional Findings: Tobacco non-user Current no nsmoker AUDIT-C (Standard) Question Answer Notes Did you have a drink containing alcohol in the p ast year? No Points 0 Interpretation Negative Problems Problem Type SNOMED Code ICD Code Onset Dates Problem Status W/U Status Risk Notes Problem Polyneuropathy due to type 2 diabetes mellitus ([id number]) Type 2 diabetes mellitus with diabetic polyneuropathy (E11.42) Active confirmed Problem Foot ulcer due to type 2 diabetes mellitus ([id number]) Skin ulcer of toe of left foot with fat layer exposed (L97.522) Active confirmed Vital Signs Blood pressure diastolic 65 mm Hg 12/09/2024 Height 6 ft in 12/09/2024 Blood pressure systolic 128 mm Hg 12/09/2024 Weight 240 lbs 12/09/2024 BMI 32.55 kg/m2 12/09/2024 Procedures Procedure Date Ordered Date Performed Result Body Sit e 54448-BEXCYLS NAIL, 6 OR MORE 12/09/2024 N/A 93660-TBZNPHX SKIN/TISSUE 12/09/2024 N/A 90751-UTPJ SKIN LESIONS, 2 TO 4 12/09/2024 N/A Encounters Encounter Location Date Provider Diagnosis [facility] [address] 12/09/2024 Lucy Anderson Type 2 diabetes mellitus with diabetic polyneuropathy E11.42 ; Tinea unguium B35.1 and Skin ulcer of toe of left foot with fat layer exposed L97.[address] [facility] [address] 10/19/2024 Lucy Anderson Assessments Encounter Date Diagnosis (ICD Code) Assessment Notes Treatment Notes Treatment Clinical Notes Section Notes 12/09/2024 Type 2 diabetes mellitus with diabetic polyneuropathy (ICD-10 - E11.42) 12/09/2024 Tinea unguium (ICD-10 - B35.1) 12/09/2024 Skin ulcer of toe of left foot with fat layer exposed (ICD-10 - L97.522) Patient Educated with: WOUND CARE INSTRUCTIONS. pdf (WOUND CARE INSTRUCTIONS. pdf) Plan Of Treatment Pending Test Test Name Order Date X ray : Foot, left 3V 12/03/2023 X ray : Foot, left 3V 11/15/2020 19347-LLYQWQQ NAIL, 6 OR MORE 12/09/2024 05804-HTFOXVJ SKIN/TISSUE 12/09/2024 59466-PQON SKIN LESIONS, 2 TO 4 12/10/19 25 75618-GOTU SKIN LESIONS, 2 TO 4 02/22/20 21 Next Appt Details Provider Name:Lucy walker, 01/24/2025 09:30:00 AM, [address] [place], [address], Insurance Providers Payer Name Payer Address Payer Phone Subscriber Number Group Number Insured Name Patient Relationship to Insured Coverage Start Date Coverage End Date [employer] [address] [place] [phone] [id number] Jossie Melo Self - patient is the insured Medical (General) History Medical History History ICD Code Diabetic type l thyroid Measles Mumps Chicken pox Surgical History Surgery Date(Month/Year) infection 01/29/2019 dental 06/2021
[2024-12-14 09:42] VITALS: BP 131/75
== END 2024-12-14 09:43 | disposition home or self-care (01) ==
LOC: HO.HMCSH 08:55
PROVIDERS: PCP Physician Assistant Medical; Visit Provider Physician Assistant Medical
DX: R07.0 Pain in throat (principal); E10.9 Type 1 diabetes mellitus without complications; R60.9 Edema, unspecified; N18.9 Chronic kidney disease, unspecified; E78.5 Hyperlipidemia, unspecified; E03.9 Hypothyroidism, unspecified; Z53.20 Procedure and treatment not carried out because of patient's decision for unspecified reasons; E66.01 Morbid (severe) obesity due to excess calories; Z13.9 Encounter for screening, unspecified

== ENCOUNTER → 2024-12-14 08:55 | Outpatient (BNVA) | payer MEDICARE, SELFPAY | PROVIDERS: PCP Physician Assistant Medical; Visit Provider Physician Assistant Medical | DX: R07.0 Pain in throat (principal); R60.9 Edema, unspecified; E10.22 Type 1 diabetes mellitus with diabetic chronic kidney disease; N18.9 Chronic kidney disease, unspecified; E78.5 Hyperlipidemia, unspecified; E03.9 Hypothyroidism, unspecified; E66.01 Morbid (severe) obesity due to excess calories; Z68.41 Body mass index [BMI] 40.0-44.9, adult; Z13.31 Encounter for screening for depression; Z13.39 Encounter for screening examination for other mental health and behavioral disorders | CPT/HCPCS: 83036; 96127; 99202 ==

== ENCOUNTER 2025-01-07 08:13 | Outpatient (REF) | payer MEDICARE, SELFPAY ==
--- OUTSIDE RECORDS SUMMARY | 2025-01-07 08:21 | XMS_ITS | Patient Health Record ---
Author Organization [facility] Address [address] [facility] [place] [address] Care Team Providers Care Premix Operator Concentrate Name Role Phone Trina Benitez Primary Care Provider Lucy Bautista Unavailable [phone] WhitesideDemetrius Unavailable [phone] Allergies No Known Allergies Results Component Value [...] Polyneuropathy due to type 2 diabetes mellitus ([id number]) Type 2 diabetes mellitus with diabetic polyneuropathy (E11.42) Active confirmed Problem Skin ulcer of to e of left foot with fat layer exposed (L97.522) Active confirmed Vital Signs Blood pressure diastolic 65 mm Hg 12/09/2024 Height 6 ft in 12/09/2024 Blood pressure systolic 128 mm Hg 12/09/2024 Weight 240 lbs 12/09/2024 BMI 32.55 kg/m2 12/09/2024 Procedures Procedure Date Ordered Date Performed Result Body Sit e 00092-HXTFAWS NAIL, 6 OR MORE 12/09/2024 N/A 14520-[place]WUK SKIN/TISSUE 12/09/2024 N/A 33446-MNIP SKIN LESIONS, 2 TO 4 12/09/2024 N/A Encounters Encounter Location Date Provider Diagnosis [facility] [address] 12/09/2024 Lucy Anderson Type 2 diabetes mellitus with diabetic polyneuropathy E11.42 ; Tinea unguium B35.1 and Skin ulcer of toe of left foot with fat layer exposed L97.[address] [address] 10/19/2024 Lucy Anderson [address] [address] 01/04/2025 Lucy Anedrson Assessments Encounter Date Diagnosis (ICD Code) Assessment [...] X ray : Foot, left 3V 11/15/2020 37742-EGULZYZ NAIL, 6 OR MORE 12/09/2024 88774-BZJNMBO SKIN/TISSUE 12/09/2024 73164-BDQV SKIN LESIONS, 2 TO 4 12/10/19 25 03015-PRYC SKIN LESIONS, 2 TO 4 02/22/20 Next Appt Details Provider Name:Lucy Arias aaron, 02/09/2025 04:00:00 PM, [address] [place], [address], Insurance Providers Payer Name Payer Address Payer Phone Subscriber Number Group Number Insured Name Patient Relationship to Insured Coverage Start Date Coverage End Date [employer] [address] [place] [phone] [id number] Jossie Melo Self - patient is the insured Medical (General) History Medical History History ICD Code Diabetic type l thyroid Measles Mumps Chicken pox Surgical History Surgery Date(Month/Year) infection 01/29/2019 dental 06/2021
--- OUTSIDE RECORDS SUMMARY | 2025-01-07 08:21 | XMS_ITS | Encounter Summary ---
Author Organization [facility] Address [address] [place] [address] Phone Care Team Providers Care Civil Division Commander Deputy Sheriff Name Role Phone Pcp, Unknown Primary Care Provider Nic Munoz MD Primary Care Provider [phone] Encounter Details Date Type Department Care Team (Late st Contact Info) Description 02/02/2019 Documentation [facility] Infectious Disease Virtual Department [address] [place] [phone] Pcp, Not Required [address] [place] [address] Social History Tobacco Use Types Packs/Day Years [...] documented as of this encounter Care Teams Civil Division Commander Deputy Sheriff Relationship Specialty Start Date End Date Pcp, Unknown PCP - General 01/29/19 08/01/24 Nic Mcghee MD [address] [place] [phone] PCP - General Internal Medicine 08/02/24 documented as of this encounter Additional Source Comments The information contained in this document represents components of the legal health record. It is not the complete legal health record.[facility]
[2025-01-07 10:20] LABS: Hematocrit 40.5 % (37.0-47.0); Hemoglobin 12.9 g/dl (12.0-16.0); Mean Corpuscular HGB Conc 31.9 g/dl (31.0-35.0); Mean Corpuscular Hemoglobin 29.9 pg (27.0-33.0); Mean Corpuscular Volume 94.0 fL (80.0-98.0); NRBC Abs Auto 0.000 X10*3/uL (0.0-0.012); NRBC Pct Auto 0.0 /100WBC (0.0-0.2); Platelet Count 241 X10*3/uL (160-400); Red Blood Count 4.31 X10*6/uL (4.20-5.50); White Blood Count 6.9 X10*3/uL (4.8-10.8)
[2025-01-07 11:31] LABS: Anion Gap 14 (12-20); Blood Urea Nitrogen 29 mg/dL (9-16); Calcium 9.6 mg/dL (8.4-10.2); Carbon Dioxide 26 mmol/L (22-29); Chloride 108 mmol/L (96-108); Estimated Glomerular Filt Rate 50; Magnesium 2.3 mg/dL (1.6-2.6); Potassium 4.6 mmol/L (3.3-5.1); Sodium 143 mmol/L (135-145)
[2025-01-07 11:42] LABS: Folate 6.7 ng/mL (> or = 4.0); Vitamin B12 401 pg/mL (200-900)
[2025-01-07 12:04] LABS: Free T4 (Free Thyroxine) 1.08 ng/dL (0.71-1.85)
== END 2025-01-07 08:14 | disposition home or self-care (01) ==
LOC: HO.HMGCLDS 08:13
PROVIDERS: PCP Physician Assistant Medical; Visit Provider Physician Assistant Medical
DX: Z00.00 Encounter for general adult medical examination without abnormal findings (principal); R07.0 Pain in throat
CPT/HCPCS: 36415; 80048; 82306; 82607; 82746; 83735; 84439; 84443; 85027

== ENCOUNTER 2025-02-07 13:45 | Outpatient (REF) | payer MEDICARE, SELFPAY ==
--- NOTE | ~2025-02-07 | CT_ITS ---
CLINICAL HISTORY: R07.0 - Pain in throat --- Additional Notes or Special Instructions: GFR 45 CT soft tissue neck with contrast Comparison: None provided Findings: There is atrophy of the salivary glands. No prevertebral fluid. Epiglottis is within normal limits. Pharyngeal mucosal space and parapharyngeal fat are normal. Salivary glands are within normal limits. No sialoliths. There is an enlarged and likely goiterous thyroid. No consolidation at the lung apices. No acute fractures. IMPRESSION: 1. There is an enlarged and likely goiterous thyroid. 2. There is atrophy of the salivary glands. Consider Sjogren syndrome under the appropriate clinical circumstances. This document has been electronically signed by: Derrick Barrera MD on 02/09/2025 10:47:04
[2025-02-07 14:34] LABS: Hematocrit 41.9 % (37.0-47.0); Hemoglobin 13.2 g/dl (12.0-16.0); Mean Corpuscular HGB Conc 31.5 g/dl (31.0-35.0); Mean Corpuscular Hemoglobin 29.8 pg (27.0-33.0); Mean Corpuscular Volume 94.6 fL (80.0-98.0); NRBC Abs Auto 0.000 X10*3/uL (0.0-0.012); NRBC Pct Auto 0.0 /100WBC (0.0-0.2); Platelet Count 237 X10*3/uL (160-400); Red Blood Count 4.43 X10*6/uL (4.20-5.50); White Blood Count 8.8 X10*3/uL (4.8-10.8)
[2025-02-07 15:06] LABS: Anion Gap 12 (12-20); Blood Urea Nitrogen 22 mg/dL (9-16); Calcium 9.4 mg/dL (8.4-10.2); Carbon Dioxide 29 mmol/L (22-29); Chloride 101 mmol/L (96-108); Estimated Glomerular Filt Rate 47; Potassium 5.0 mmol/L (3.3-5.1); Sodium 137 mmol/L (135-145)
[2025-02-07] MEDS: iohexoL 350 MG/ML 100 ML INFUS..BTL 60 ML IV (16:02)
--- OUTSIDE RECORDS SUMMARY | 2025-02-07 16:13 | XMS_ITS ---
Patient Health Record Created on: February 07, 2025 Jossie Melo : 1955
== END 2025-02-07 13:46 | disposition home or self-care (01) ==
LOC: HO.CT 13:45
PROVIDERS: PCP Physician Assistant Medical; Visit Provider Physician Assistant Medical
DX: R07.0 Pain in throat (principal); Z00.00 Encounter for general adult medical examination without abnormal findings
CPT/HCPCS: 36415; 70491; 80048; 84443; 85027; Q9967

== ENCOUNTER → 2025-02-07 14:26 | Outpatient (BNV) | payer MEDICARE, SELFPAY | PROVIDERS: PCP Physician Assistant Medical; Visit Provider Radiology Diagnostic Radiology | DX: K11.0 Atrophy of salivary gland (principal) | CPT/HCPCS: 70491 ==

== ENCOUNTER 2025-04-13 10:50 | Outpatient (REF) | payer MEDICARE, SELFPAY ==
[2025-04-13 14:05] LABS: Erythrocyte Sedimentation Rate 36 MM/HR (0-20)
[2025-04-17 13:53] LABS: Antibody to SS-A Antigen <1.0 NEG AI (<1.0 NEG); Antibody to SS-B Antigen <1.0 NEG AI (<1.0 NEG); SM/Ribonucleoprotein Ab <1.0 NEG AI (<1.0 NEG); Smith Protein <1.0 NEG AI (<1.0 NEG)
[2025-04-18 12:29] LABS: Anti Nuclear Antibody Screen POSITIVE (NEGATIVE)
[2025-04-18 12:39] LABS: Anti Nuclear Antibody Pattern Nuclear, Centromere; Anti Nuclear Antibody Titer > OR = 1:1280 titer
[2025-04-18 18:59] LABS: Thyroglobulin 15.0 ng/mL
[2025-04-21 11:14] LABS: Centromere Protein A Ab 163 SI (<11); Centromere Protein B Ab 163 SI (<11); Fibrillarin Ab <11 SI (<11); PM SCL 100 Ab <11 SI (<11); PM SCL 75 Ab <11 SI (<11); RNA Polymerase III RP11 Ab <11 SI (<11); RNA Polymerase III RP155 Ab <11 SI (<11); SCL-70 Extractable Nuclear Ab <11 SI (<11); Th-To Ab <11 SI (<11); U1 SNRNP RNP 70KD <11 SI (<11); U1 SNRNP RNP A <11 SI (<11); U1 SNRNP RNP C <11 SI (<11)
== END 2025-04-13 10:51 | disposition home or self-care (01) ==
LOC: HO.HMGCLDS 10:50
PROVIDERS: PCP Physician Assistant Medical; Visit Provider Physician Assistant Medical
DX: Z00.00 Encounter for general adult medical examination without abnormal findings (principal); K21.9 Gastro-esophageal reflux disease without esophagitis; K11.0 Atrophy of salivary gland; E10.9 Type 1 diabetes mellitus without complications; E03.9 Hypothyroidism, unspecified; R07.0 Pain in throat; M25.50 Pain in unspecified joint; D80.1 Nonfamilial hypogammaglobulinemia; E04.9 Nontoxic goiter, unspecified; R76.89 Other specified abnormal immunological findings in serum
CPT/HCPCS: 36415; 82784; 83036; 84182; 84432; 85652; 86038; 86039; 86140; 86160; 86225; 86235; 86376; 86431; 96127; 99212

== ENCOUNTER 2025-04-13 10:50 | Outpatient (AMB) | payer MEDICARE, SELFPAY ==
--- NOTE | 2025-04-13 10:52 | A.OFFPC_ITS ---
Vital Signs 04/13/25 11:02 Height 6 ft 0.05 in Weight 290 lb BMI 39.3 BP 132/62 Blood Pressure Location Lt brachial Position Sitting Respiration 14 Pulse 94 Pulse Source Pulse Oximeter Temp 98.2 F Temp Source Temporal Artery Scan Pulse Oximetry (%) 96 Oxygen Delivery Method Room Air Intake Visit Reasons: follow up Hosiery Bagger Required: No Accompanied by: Self / Same As Patient Allergies sulfamethoxazole (From Bactrim) Allergy (Mild, Verified 04/13/25 11:34) Hives trimethoprim (From Bactrim) Allergy (Mild, Verified 04/13/25 11:34) Hives Medication List - Last Reconciled 04/13/25 by Trina Benitez PA-C insulin NPH isoph U-100 human (Novolin N NPH U-100 Insulin isophane) 26 units (0.26 mL) subcut QAM insulin regular human (Novolin R Regular U-100 Insulin) 6 units subcut TID PRN levothyroxine 75 mcg PO DAILY saliva stimulant comb. no.3 (Biotene Moisturizing Mouth mucosal spray) 1 appl mucous membrane Q2H PRN saliva stimulant comb. no.7 (Biotene Oralbalance (glycerin) mucosal gel) 1 ea mucous membrane BEDTIME saliva substitute combo no.9 (Biotene Dry Mouth Oral Rinse mouthwash) 15 mL mucous membrane BID-QID PRN xylitol 1 mg (0.002 x 500 mg) mucous membrane Q8H Tobacco use date assessed: 12/14/24 Dental Screening Dental Screen Date: 12/14/24 HPI HPI Comments History of Present Illness Details History of Present Illness The patient is a 69 year old individual presenting for a follow-up for a persistent sore throat. The patient describes the sensation as a very sore throat that feels like a cut behind the tongue. A CT scan of the neck was performed on February 09, 2025, which revealed an enlarged and likely goiterous thyroid, along with atrophy of the salivary glands, raising suspicion for Sjogren's syndrome. As a result of the CT findings, referrals were made to endocrinology and rheumatology. The patient has an upcoming appointment with endocrinology on April 19, but the rheumatology appointment is scheduled for March 2026. The patient plans to travel south for the winter after and will return in September, making the distant rheumatology appointment problematic. The patient has a history of type 2 diabetes, and a recent HbA1c level was 8.2, which is an increase from a previous level of 7.9. The patient reports experimenting with diet, including fasting for 12 hours from 9 PM to 9 AM, and notes that blood sugar levels have been fluctuating. The patient has also cut out muffins, cake, and bread but has not seen an improvement in blood sugar. The patient also has a history of acid reflux, for which the patient self-treats with apple cider vinegar tablets with every meal. The patient reports significant dry mouth. Social History - Diet: Patient is experimenting with di et, including a 12-hour fast from 9 p.m. to 9 a.m., and has recently eliminated muffins, cake, and bread. - Travel: Patient plans to travel to [facility] for the winter, leaving after and returning in September. - Substance Use: Denies using mouthwash with alcohol. [facility] Medical History Atrophy of salivary gland Thyroid goiter Vitamin D deficiency Subclinical hypothyroidism Obesity, morbid, BMI 40.0-49.9 Dual energy x-ray photon absorptiometry (DEXA) scan declined (~12/14/24) Colonoscopy refused (~12/14/24) Mammogram declined (~12/14/24) Hypothyroidism Hyperlipidemia LDL goal <70 CKD (chronic kidney disease) Edema Type 1 diabetes mellitus with hemoglobin A1c goal of less than 7.0% Throat pain Family History Father Prostate cancer Mother Non Hodgkin's lymphoma H/O kidney removal Social History Housing: House Alcohol intake: current Alcohol intake frequency: does not drink Patient Tobacco Use Status: Never used Tobacco service: No Current occupational status: retired Cognitive needs: No Hearing needs: No Vision needs: Yes (rx glasses) Questionnaire PHQ-9 Over the last 2 weeks, how often have you been bothered by any of the following problems? 1. Little interest or pleasure in doing things: not at all 2. Feeling down, depressed, or hopeless: not at all 3. Trouble falling or staying asleep, or sleeping too much: not at all 4. Feeling tired or having little energy: not at all 5. Poor appetite or overeating: not at all 6. Feeling bad about yourself - or that you are a failure or have let yourself or your family down: not at all 7. Trouble concentrating on things, such as reading the newspaper or watching television: not at all 8. Moving or speaking so slowly that other people could have noticed. Or the opposite - being so fidgety or restless that you have been moving around a lot more than usual: not at all 9. Thoughts that you would be better off or of hurting yourself in some way: not at all Total score: 0 Depression Screening Interpretation: Negative Depression Screening Done: Yes 89273 - PHQ-9 Billing: Yes Source: Developed by Drs. Juan A Levine, Dalia Vaca, Victor M Garcia and colleagues, with an educational brielle from [employer]. Thrive Questionnaire Date Thrive assessed: 12/14/24 I am a: Patient What is your living situation today?: I have a steady place to live Within the past 12 months, did the food you bought not last and you didn't have the money to get more?: Never true Within the past 12 months, did you worry whether your food would run out before you got money to buy more?: Never true Do you have trouble paying for medicines?: No Do you have trouble getting transportation to medical appointments?: No Do you have trouble paying your heating and electricity bill?: No Do you have trouble taking care of your child, family member or friend?: No Do you have trouble with day-to-day activities such as bathing, preparing meals, shopping, managing finances, etc.?: No Are you currently unemployed and looking for a job?: No Are you interested in more education?: No Please select the resources that you would like help with: None Currently or been in a relationship where the following occur: No concerns reported THRIVE Score: 0 AUDIT C Alcohol Use Questionnaire (AUDIT-C) 1. How often do you have a drink containing alcohol?: Never 3. How often do you have six or more drinks on one occasion?: Never Total Score: 0 Score Reviewed/Action Taken: No JORGE LUIS-7 AMB Questionnaire JORGE LUIS-7 Date JORGE LUIS - 7 assessed: 12/14/24 Feeling nervous, anxious, or on edge: 0 = Not at all Not being able to stop or control worryin = Not at all Worrying too much about different things: 0 = Not at all Trouble relaxin = Not at all Being so restless that it is hard to sit still: 0 = Not at all Becoming easily annoyed or irritable: 0 = Not at all Feeling afraid as if something awful might happen: 0 = Not at all Total JORGE LUIS-7 score (0-4 normal; 5-9 mild; 10-14 moderate; 15-21 severe): 0 Source: Developed by Drs. Juan A Levine, Dalia Vaca, Victor M Garcia and colleagues, with an educational brielle from [employer]. JORGE LUIS-7 Assessment Billing JORGE LUIS-7 Assessment Tool: JORGE LUIS-7 Assessment 10983 Review of Systems Narrative Review of Systems - Constitutional: Denies fever, new fatigue, or weight loss. - HEENT: Reports a persistent, very sore throat that feels like a cut behind the tongue. Reports severe dry mouth (xerostomia). Denies sinus problems. - Respiratory: Denies shortness of breath. - Cardiovascular: Denies chest pain. - Gastrointestinal: Reports acid reflux. Denies difficulty swallowing saliva. - Musculoskeletal: Denies joint swelling. Const All systems reviewed & are unremarkable except as noted in HPI and below Physical exam (Primary Care) Vital Signs: Last Vital Signs Temp 98.2 F 04/13/25 11:02 Pulse 94 04/13/25 11:02 Resp 14 04/13/25 11:02 BP 132/62 04/13/25 11:02 Pulse Ox 96 04/13/25 11:02 Oxygen Delivery Method Room Air 04/13/25 11:02 Care Plan Goal for BP management: <140/90 at Goal BMI result Body Mass Index 39.3 BMI Assessment/Plan discussion: High BMI High, discussed plan: lifestyle, weight reduction, dietary, physical activity, alcohol moderation and other Tobacco/Smoking Status: Tobacco use Status Tobacco use date assessed 12/14/24 04/13/25 10:53 Patient Tobacco Use Status Never used Tobacco 04/13/25 10:53 PHQ-9: PHQ-9 Score PHQ-9: Total score 0 04/13/25 10:57 Depression Screening Interpretation: Negative Thrive Assessment: Date of Thrive Assessment Date Thrive assessed 12/14/24 04/13/25 10:53 Currently or been in a relationship where the following occur: No concerns reported Narrative Physical Exam Appearance: Alert. Oriented X3. No acute distress. Head: Normal external exam. Normocephalic. Atraumatic. Eyes: Pupils are equal, round, and reactive to light. Extraocular movements intact. Conjunctiva and sclera normal. Eyelids normal. Throat: Very sore throat. Feels like there's a cut behind the tongue. Pharynx normal. Uvula midline. Dry mucous membranes very dry. Neck: Normal inspection. Neck supple. Full range of motion. No adenopathy. Thyroid enlarged and likely goitrous. Cardiovascular: Normal heart rate and rhythm. Respiratory: No respiratory distress. Painless inspiration. Back: Full range of motion noted. Skin: Skin warm and dry. Normal skin color. Normal skin turgor. No rashes/lesions/lacerations noted. Extremities: Extremities exhibit normal range of motion. Neuro: Oriented X 3. No motor deficit. No sensory deficit. Reflexes normal. Results AMB Hemoglobin A1c AMB Hemoglobin A1c 8.2 % Last Edit by LAURYN Durant on 04/13/25 11:10 Results Reviewed Results Reviewed: Results - Labs: HbA1c is 8.2, increased from 7.9. - Imaging: CT scan of the neck (02/09/2025) revealed an enlarged and likely goiterous thyroid and atrophy of the salivary glands, with a suggestion to consider Sjogren's syndrome. - Diagnostics: Urinalysis was normal with no evidence of UTI. Coding Level of Care Code Est Pt Level 4 (12562) Complex visit Add On G2211 Diagnoses Atrophy of salivary gland K11.0 Type 1 diabetes mellitus with hemoglobin A1c goal of less than 7.0% E10.9 Additional Codes JORGE LUIS-7 Assessment Billing - JORGE LUIS-7 Assessment Tool: JORGE LUIS-7 Assessment 26927 ([id number]) PHQ-9 - 41312 - PHQ-9 Billing: Yes ([id number]) Assessment & Plan Assessment & Plan (1) Atrophy of salivary gland: Code(s): K11.0 - Atrophy of salivary gland Category: Medical Plan: The patient's persistent sore throat, xerostomia, and CT findings of salivary gland atrophy and a goiter raise suspicion for an underlying autoimmune disorder, such as Sjogren's syndrome. To expedite evaluation, additional blood work for autoimmune disorders will be ordered, including an CASSANDRA, SSA, SSB, and rheumatoid factor. A message has been sent to the rheumatology department to request an earlier appointment than the scheduled March 2026 date, and if unsuccessful, a referral to [facility] will be considered. The patient will proceed with the endocrinology consultation on April 19. For symptomatic relief of xerostomia, Biotin moisturizing mouth spray, gel for bedtime use, and a mouthwash will be prescribed. The patient was counseled on ER precautions, including difficulty swallowing saliva, severe dry mouth interfering with eating, joint swelling, fever, new fatigue, weight loss, chest pain, or shortness of breath. (2) Type 1 diabetes mellitus with hemoglobin A1c goal of less than 7.0%: Code(s): E10.9 - Type 1 diabetes mellitus without complications Category: Medical Plan: The patient's HbA1c has increased from 7.9 to 8.2 despite recent dietary changes. In light of the hyperglycemia and upcoming holidays, the patient's bedtime insulin will be increased to 26 units. The hyperglycemia may be related to the suspected underlying inflammatory autoimmune condition. Plan Plan Patient was informed and verbally consented to the use of an ambient scribe for clinic note documentation during this visit. 1. Suspected Sjogren's Syndrome, Goiter, And Chronic Sore Throat The patient's persistent sore throat, xerostomia, and CT findings of salivary gland atrophy and a goiter raise suspicion for an underlying autoimmune disorder, such as Sjogren's syndrome. To expedite evaluation, additional blood work for autoimmune disorders will be ordered, including an CASSANDRA, SSA, SSB, and rheumatoid factor. A message has been sent to the rheumatology department to request an earlier appointment than the scheduled March 2026 date, and if unsuccessful, a referral to [facility] will be considered. The patient will proceed with the endocrinology consultation on April 19. For symptomatic relief of xerostomia, Biotin moisturizing mouth spray, gel for bedtime use, and a mouthwash will be prescribed. The patient was counseled on ER precautions, including difficulty swallowing saliva, severe dry mouth interfering with eating, joint swelling, fever, new fatigue, weight loss, chest pain, or shortness of breath. 2. Type 1 Diabetes Mellitus With Hyperglycemia The patient's HbA1c has increased from 7.9 to 8.2 despite recent dietary changes. In light of the hyperglycemia and upcoming holidays, the patient's bedtime insulin will be increased to 26 units. The hyperglycemia may be related to the suspected underlying inflammatory autoimmune condition. Discussion Notes I reviewed the results of the neck CT scan with the patient, explaining that the findings of an enlarged thyroid (goiter) and salivary gland atrophy could be the cause of the patient's persistent sore throat and dry mouth. I discussed the possibility of an underlying autoimmune disorder, like Sjogren's syndrome, and my plan to order further blood work (CASSANDRA, SSA/SSB, RF) to investigate this. I explained that the rheumatology appointment scheduled for March 2026 is too far out, and that I would contact their office to request an earlier visit or a place on the cancellation list; a referral to [facility] is an alternative if needed. We also discussed the patient's diabetes management, noting the rise in A1c to 8.2, and we mutually agreed to increase the bedtime insulin dose to 26 units. For symptomatic relief of dry mouth, I will prescribe a moisturizing mouth spray, gel, and mouthwash and advised on other measures like lozenges and humidifiers. I advised the patient to follow up in September after returning from winter travel, and reassured the patient I can send prescriptions or records to [place] if necessary. Orders: Orders AMB Hemoglobin A1c Today E10.9 - Type 1 diabetes mellitus without complications CASSANDRA Reflex Titer and Pattern Today E03.8 - Other specified hypothyroidism, K11.0 - Atrophy of salivary gland, R07.0 - Pain in throat Scleroderma 12 Panel Today M25.50 - Pain in unspecified joint Sjogren's Antibodies Today M25.50 - Pain in unspecified joint Sm Sm/CANOE MAKER Antibodies Today M25.50 - Pain in unspecified joint C Reactive Protein Today Z00.00 - Encounter for general adult medical examination without abnormal findings Erythrocyte Sedimentation Rate Today Z00.00 - Encounter for general adult medical examination without abnormal findings Complement C3 17 Days D80.1 - Nonfamilial hypogammaglobulinemia Immunoglobulins,IgG IgA IgM Today M25.50 - Pain in unspecified joint FARTUN 1 Antibody Today M25.50 - Pain in unspecified joint Rheumatoid Factor Today E03.8 - Other specified hypothyroidism, E03.9 - Hypothyroidism, unspecified, E04.9 - Nontoxic goiter, unspecified, E10.9 - Type 1 diabetes mellitus without complications, K11.0 - Atrophy of salivary gland, R07.0 - Pain in throat Scleroderma 70 Antibody Today M25.50 - Pain in unspecified joint Complement C4 17 Days D80.1 - Nonfamilial hypogammaglobulinemia Thyroglobulin Today M25.50 - Pain in unspecified joint Thyroid Peroxidase Antibodies Today M25.50 - Pain in unspecified joint Anti DNA DS Antibody Today R76.89 - Other specified abnormal immunological findings in serum Anti-Centromere B Antibodies Today M25.50 - Pain in unspecified joint Medications: New saliva substitute combo no.9 (Biotene Dry Mouth Oral Rinse mouthwash) swish for 15-30 secs , then spit out; do not swallow 15 mL mucous membrane BID-QID PRN 473 mL 4RF dry mouth xylitol 1 mg (0.002 x 500 mg) mucous membrane Q8H 90 tabs 4RF insulin NPH isoph U-100 human (Novolin N NPH U-100 Insulin isophane) 26 units (0.26 mL) subcut QAM 10 mL 0RF saliva stimulant comb. no.3 (Biotene Moisturizing Mouth mucosal spray) while awake 1 appl mucous membrane Q2H PRN 44.3 mL 6RF dry mouth saliva stimulant comb. no.7 (Biotene Oralbalance (glycerin) mucosal gel) 1 ea mucous membrane BEDTIME 42 grams 6RF Patient Instructions: Patient Instructions - Please go to the laboratory to have the new blood work done. - Keep your appointment with the grades 1 through 6 teacher on April 19. - Our office has contacted the home paraprofessional to try to get you an earlier appointment and will call you if a sooner date becomes available. - Increase your bedtime insulin dose to 26 units. - For dry mouth, use the prescribed Biotene moisturizing spray, gel, and mouthwash as directed. - You can also try using a humidifier at night, sucking on sugar-free lozenges or sour candies, and swishing with olive or coconut oil to help with dry mouth. - Go to the emergency room immediately if you experience difficulty swallowing your saliva, severe dry mouth that interferes with eating, joint swelling, fever, new or unusual fatigue, weight loss, chest pain, or shortness of breath. - Please call our office to schedule a follow-up appointment for September when you return.
[2025-04-13 11:02] VITALS: BP 132/62; PULSE 94; RESP 14; TEMP 36.8; O2SAT 96; BMI 39.3
--- OUTSIDE RECORDS SUMMARY | 2025-04-13 13:13 | XMS_ITS | Encounter Summary ---
Author Organization [facility] Address [address] [place] [phone] Phone Care Team Providers Care Obiee Obia Solution Architect Name Role Phone Pcp, Unknown Primary Care Provider Nic Munoz MD Primary Care Provider [phone] Encounter Details Date Type Department Care Team (Late st Contact Info) Description 02/02/2019 Documentation [facility] Infectious Disease Virtual Department [address] [place] [address] [phone] Pcp, Not Required [address] [place] [address] Social History Tobacco Use Types Packs/Day Years [...] documented as of this encounter Care Teams Obiee Obia Solution Architect Relationship Specialty Start Date End Date Pcp, Unknown PCP - General 01/29/19 08/01/24 Nic Mcghee MD [address] [place] [phone] PCP - General Internal Medicine 08/02/24 documented as of this encounter Additional Source Comments The information contained in this document represents components of the legal health record. It is not the complete legal health record.[facility]
--- OUTSIDE RECORDS SUMMARY | 2025-04-13 13:13 | XMS_ITS | Clinical Summary ---
Author Organization [facility] Address [address] [place], [place] [id number] Phone Care Team Providers Care Puppet Engineer Name Role Phone Nic Mcghee MD Primary Care Provider [phone]- [phone] Allergies Active Allergy Reactions Criticality Noted Date Comments Sulfamethoxazole-Trimethoprim Hives Low 2022 Latex 04/24/2023 Medications insulin NPH (HUMULIN N,NOVOLIN N) 100 unit/mL injection vial Inject 15 Units under the skin 2 (two) times a day before meals. 9 Active clindamycin (CLEOCIN) 600 mg/50 mL IVPB Inject 50 mL (600 mg total) into the vein every 6 (six) hours. 9 Active Additional Information Patient not taking.Reported on 08/02/2024 HYDROmorphone (DILAUDID) 1 mg/mL Syrg injection syringe Inject 0.8 mL (0.8 mg total) into the vein every 4 (four) hours as needed. 9 Active Additional Information Patient not taking.Reported on 08/02/2024 piperacillin-ta zobactam premix (ZOSYN) 3.375 gram/50 mL IVPB Inject 50 mL (3.375 g total) into the vein every 8 (eight) hours. 9 Active Additional Information Patient not taking.Reported on 08/02/2024 vancomycin premix (VANCOCIN) IVPB Inject 250 mL (1,000 mg total) into the vein every 12 (twelve) hours. 9 Active Additional Information Patient not taking.Reported on 08/02/2024 sodium chloride solution Inject 200 mL/hr into the vein continuous. 9 Active Additional Information Patient not taking.Reported on 08/02/2024 levothyroxine (SYNTHROID, LEVOTHROID) 75 MCG tablet 3 Active Active Problems Problem Noted Date Diagnosed Date Necrotizing fasciitis 01/31/2019 Assessment & Plan (01/31/2019 6:21 PM EDT): Pt with IDDM clearly with infection of the mons and labia. Question is whether she has necrotizing fasciitis in the perineum. Our surgeon marketing communications associate and snuff grinder and screener marketing communications associate are not comfortable assessing or intervening in this situation, so I would recommend transfer tonight. Pt is not hypotensive, but quite dry I believe,with HR >100. We do not know her usual BP. She has a flushed face despite no fever, and has some clinical characteristics of TSS (without the shock). She has a high WBC with left shift (bands), and worsening renal function, and pink flush (tho only on her face). REC: Transfer tonight for surgical/snuff grinder and screener evaluation Add clindamycin Increase Hydration Check lactate Sepsis, unspecified organism 01/30/2019 Assessment & Plan (01/31/2019 2:09 PM EDT): ,The patient presented with pain and redness in her labia after lancing what sounds like a small boil. When she presented to the ED she met criteria for sepsis. She has cellulitis on her mons pubis on exam. Her CT did not show an abscess She seems worse today with increased nausea as well as onset of frequent vomiting. Her discomfort is similar however she now has acute kidney injury her white count is not improved For now continue on Vanco and Zosyn, consult gynecology IV fluid bolus and increase IV fluid rate recheck labs this afternoon Stop Toradol due to LIZET and added Dilaudid (morphine makes her very nauseous) Type 1 diabetes mellitus with ketoacidosis witho ut coma 01/30/2019 Assessment & Plan (01/31/2019 2:06 PM EDT): She is still on NPH and regular insulin at home likely since she has not seen a physician in many years and can obtain this [id number] She does not check her blood sugars regularly. She does not have insurance case management saw her today and will refer [facility]. In the hospital have continued her usual NPH insulin but with a lispro sliding scale. Family History Medical History Relation Comments Cancer Father Lymphoma Mother Congenital heart disease Sister Relation Status Comments Father Mother Sister Social History Tobacco Use Types Packs/Day Years Used Date Smoking Tobacco: Never Smokeless Tobacco: Never Tobacco Cessation:Counseling Given: Not Answered Alcohol Use Standard Drinks/Week Comments Yes 0 (1 standard drink = 0.6 oz pur e alcohol) social red wine Education Answer Date Recorded Are you interested in more education? Not on loretta e 09/26/2022 Are you concerned about learning? Not on file 09/26/2022 No 09/26/2022 No 09/26/2022 Digital Access Answer Date Recorded No 10/13/2022 No 10/13/2022 Reliable internet access at home? Not on file 10/13/2022 Device with a working camera? Not on file Comments No Sex and Gender Information Value Date Recorded Sex Assigned at Female 01/29/2019 8:47 PM EDT Legal Sex Female 6:50 PM EST Gender Identity Female 01/29/2019 8:47 PM EDT Sexual Orientation Straight 01/29/2019 8: 47 PM EDT Last Filed Vital Signs Vital Sign Reading Time Taken Comments Blood Pressure 161/86 08/02/2024 2:42 PM EDT Pulse 94 08/02/2024 2:42 PM EDT Temperature 36.5 C (97.7 F) 08/02/2024 2:42 PM EDT Respiratory Rate 18 08/02/2024 2:42 PM EDT Oxygen Saturation 97% 08/02/2024 2:42 PM EDT Inhaled Oxygen Concentration - - Weight 110.2 kg (242 lb 14.4 oz) 01/30/2019 6:15 AM EDT Height 182.9 cm (6') 01/30/2019 6:15 AM EDT Body Mass Index 32.94 01/30/2019 6:15 AM EDT Plan of Treatment Health Maintenance Due Date Last Done Comments Adult Td,Tdap Booster 1955 TSH LEVEL 1955 DEPRESSION SCREENING 1967 HEPATITIS C SCREENING 09/09/1973 LIPID PANEL 09/09/1973 PNEUMOCOCCAL VACCINES (50+ years) (1 of 2 - PCV) 09/09/1974 MAMMOGRAM 1995 COLOGUARD 09/09/2000 COLONOSCOPY 09/09/2000 COLORECTAL CANCER SCREENING 09/09/2000 FIT TEST 09/09/2000 FOBT 09/09/2000 SIGMOIDOSCOPY 09/09/2000 VIRTUAL COLONOSCOPY 09/09/2000 RSV VACCINE (1 - Risk 50-74 years 1-dose series) 09/09/2005 ZOSTER VACCINES (1 of 2) 09/09/2005 URINE MICROALBUMIN/CREATININE RATIO 01/30/2019 HEMOGLOBIN A1C 05/02/2019 01/31/2019 OSTEOPOROSIS SCREENING INITIAL (ONE-TIME) 09/09/2020 DIABETIC EYE EXAM 04/24/2024 04/24/2023, , 04/24/2023, Additional history exists INFLUENZA VACCINE (#1) 2024 COVID-19 VACCINE (1 - season) 2025 BLOOD PRESSURE 02/02/2025 08/02/2024 SMOKING STATUS SCREENING (Once After 26 Yrs) Completed 08/02/2024 HEPATITIS A VACCINES Aged Out No long er eligible based on patient's age to complete this topic HIB VACCINES Aged Out No longer eligi ble based on patient's age to complete this topic IPV VACCINES Aged Out No longer eligi ble based on patient's age to complete this topic MENINGOCOCCAL VACCINES (ACWY) Aged Out No longer eligible based on patient's age to complete this topic MENINGOCOCCAL VACCINES (B) Aged Out N o longer eligible based on patient's age to complete this topic Medical Devices Not on file Procedures Procedure Name Priority Date/Time Associated Diagnosis Comments HEMOGLOBIN A1C Routine 01/31/2019 6:14 AM EDT from Last 3 Months or Most Recently Relevant to Health Maintenance Results * (ABNORMAL) Hemoglobin A1c (01/31/2019 6:14 AM EDT) HEMOGLOBIN A1C 10.0(H) 4.3 - 5.8 % [facility] Blood 01/31/2019 6:14 AM EDT 01/31/2019 6:46 AM EDT Azalea Beyer MD LAB BLOOD BKR ORDERABLE S Final Result [facility] [address] [place] [address] from Last 3 Months or Most Recently Relevant to Health Maintenance Insurance [facility] MEDICARE REPLACEMENT [facility] MEDICARE REPLACEMENT [facility] MEDICARE [facility]PLACEMENT [facility] MEDICARE REPLACEMENT [facility] MEDICARE [facility]PLACEMENT [facility] MEDICARE REPLACEMENT [facility] MEDICARE REPLACEMENT [facility] MEDICARE REPLACEMENT [facility] MEDICARE [facility]PLACEMENT [facility] MEDICARE REPLACEMENT [facility] MEDICARE REPLACEMENT [facility] MEDICARE REPLACEMENT Advance Directives For more information, please contact: [phone] (9AM - 5PM [facility], Friday-Friday) * Full Code (Confirmed) (Latest Code Status on File) Date Activated Date Inactivated Comments 01/30/2019 6:08 AM 02/01/2019 12:23 AM Question Answer Comments Code Status Confirmed With: Patient Care Teams Puppet Engineer Relationship Specialty Start Date End Date Nic Mcghee MD [address] [place] [phone] PCP - General Internal Medicine 08/02/24 Additional Source Comments The information contained in this document represents components of the legal health record. It is not the complete legal health record.[facility]
== END 2025-04-13 11:23 | disposition home or self-care (01) ==
LOC: HO.HMCSH 10:50
PROVIDERS: PCP Physician Assistant Medical; Visit Provider Physician Assistant Medical
DX: K11.0 Atrophy of salivary gland (principal); E10.9 Type 1 diabetes mellitus without complications

== ENCOUNTER 2025-04-19 09:48 | Outpatient (AMB) | payer MEDICARE, SELFPAY ==
[2025-04-19 09:56] VITALS: BP 126/76; PULSE 91; O2SAT 96; BMI 39.3
--- NOTE | 2025-04-19 09:56 | A.OFFVIS_ITS ---
Vital Signs 04/19/25 09:56 Height 6 ft 0.05 in Weight 290 lb 0.163 oz BMI 39.3 BP 126/76 Blood Pressure Location Rt brachial Position Sitting Pulse 91 Pulse Source Pulse Oximeter Pulse Oximetry (%) 96 Oxygen Delivery Method Room Air Intake Visit Reasons: Nontoxic goiter, unspecified Intake Note: NEW Patient presents today to establish care for Nontoxic Goiter, Unspecified: Clip Baker Required: No Accompanied by: Self / Same As Patient Allergies sulfamethoxazole (From Bactrim) Allergy (Mild, Verified 04/19/25 09:57) Hives trimethoprim (From Bactrim) Allergy (Mild, Verified 04/19/25 09:57) Hives Medication List - Last Reconciled 04/19/25 by Bina Ruiz MD apple cider vinegar 1,200 mg PO blood-glucose sensor (FreeStyle Brendan 3 Plus Sensor device) As directed to check BG continuously for T1DM with hypoglycemia. blood-glucose,spud grader,cont (FreeStyle Brendan 3 Stokes) As directed cyanocobalamin (vitamin B-12) 1,000 mcg PO DAILY insulin NPH isoph U-100 human (Novolin N NPH U-100 Insulin isophane) 26 units (0.26 mL) subcut QAM insulin regular human (Novolin R Regular U-100 Insulin) 6 units subcut TID PRN levothyroxine 75 mcg PO DAILY saliva stimulant comb. no.3 (Biotene Moisturizing Mouth mucosal spray) 1 appl mu cous membrane Q2H PRN saliva stimulant comb. no.7 (Biotene Oralbalance (glycerin) mucosal gel) 1 ea mucous membrane BEDTIME saliva substitute combo no.9 (Biotene Dry Mouth Oral Rinse mouthwash) 15 mL mucous membrane BID-QID PRN xylitol 1 mg (0.002 x 500 mg) mucous membrane Q8H zinc acetate 50 mg PO DAILY HPI Comments Details: 69 years old female with a medical history of vitamin-D deficiency, hyperlipidemia, presented for initial evaluation and management of ?type 1 diabetes and thyroid concerns. Type 1 diabetes The patient was diagnosed with type 1 diabetes at age 36. She does not recall being tested for antibodies. Current treatment involves insulin therapy using Humulin NPH (26 units in the morning) and Humulin R (6 units with meals, currently two meals per day). The patient has attempted dietary changes since January, including increased protein intake and reduced carbohydrates, avoiding bread and sweets, and consuming milk with coffee. Reports frequent hypoglycemia, three to four times per week, typically occurring between 3-4 AM, with symptoms including shaking, sweating, disorientation, and panic feelings. Uses sugar pills to manage low blood sugar episodes. Checks blood glucose two to three times daily, advised to increase to four times. Has not used a continuous glucose monitor (CGM) but expressed interest after explanation of its benefits. Legally blind due to diabetic retinopathy, receives eye injections every eight weeks. Reports slight kidney function concerns but no formal diagnosis of nephropathy. Exercises regularly, engaging in daily physical activity since regaining sight from cataract surgery. Hypothyroidism The patient has subclinical hypothyroidism, with symptoms of fatigue and depression, but reports good sleep quality without significant cold intolerance. The patient has a history of an enlarged thyroid since childhood and has been on levothyroxine, currently at a dose of 75 mcg daily. Reports significant acid reflux and occasional difficulty swallowing, with a sensation of food getting stuck, particularly with pasta. These symptoms have been present for a couple of years. Physical exam: General: Well appearing. NAD. Neck/Thyroid: Thyroid mildly enlarge, no nodules. Eyes: No conjunctival injection, not lid lag or proptosis CV: RRR, no murmur. No edema. Resp:Lungs clear to auscultation bilaterally Abdomen: Soft, nontender. nondistended Extremities/Neuro: No weakness or tremor of outstretched hands Laboratory Tests 10/22/24 12/14/24 01/07/25 09:28 09:39 08:17 Sodium 143 Potassium 4.6 Creatinine 1.09 Estimated GFR 50 Random Glucose 89 Hgb A1c (Clinic) 7.9 H Triglycerides 65 Cholesterol 194 LDL Cholesterol, Calc 105 H HDL Cholesterol 76 TSH 7.94 H Free T4 1.08 Thyroglobulin 02/07/25 04/13/25 04/13/25 14:20 11:09 11:40 Sodium 137 Potassium 5.0 Creatinine 1.14 Estimated GFR 47 Random Glucose 437 H* Hgb A1c (Clinic) 8.2 H Triglycerides Cholesterol LDL Cholesterol, Calc HDL Cholesterol TSH 3.66 Free T4 Thyroglobulin 15.0 Imaging: Thyroid US 02/07/25 Findings: There is atrophy of the salivary glands. No prevertebral fluid. Epiglottis is within normal limits. Pharyngeal mucosal space and parapharyngeal fat are normal. Salivary glands are within normal limits. No sialoliths. There is an enlarged and likely goiterous thyroid. No consolidation at the lung apices. No acute fractures. IMPRESSION: 1. There is an enlarged and likely goiterous thyroid. 2. There is atrophy of the salivary glands. Consider Sjogren syndrome under the appropriate clinical circumstances. 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 Thyroid goiter Vitamin D deficiency Subclinical hypothyroidism Obesity, morbid, BMI 40.0-49.9 Dual energy x-ray photon absorptiometry (DEXA) scan declined (~12/14/24) Colonoscopy refused (~12/14/24) Mammogram declined (~12/14/24) Hypothyroidism Hyperlipidemia LDL goal <70 CKD (chronic kidney disease) Edema Type 1 diabetes mellitus with hemoglobin A1c goal of less than 7.0% Throat pain Surgical History (Updated 04/19/25 @ 09:59 by LAURYN Reid) History of gastrointestinal surgery Family History Father Prostate cancer Mother Non Hodgkin's lymphoma H/O kidney removal Social History Housing: House Alcohol intake: current Alcohol intake frequency: does not drink Patient Tobacco Use Status: Never used Tobacco service: No Current occupational status: retired Cognitive needs: No Hearing needs: No Vision needs: Yes (rx glasses) Physical Exam Vital Signs: Last Vital Signs Pulse 91 04/19/25 09:56 BP 126/76 04/19/25 09:56 Pulse Ox 96 04/19/25 09:56 Oxygen Delivery Method Room Air 04/19/25 09:56 BMI result Body Mass Index 39.3 Assessment & Plan Assessment & Plan (1) Type 1 diabetes mellitus with hemoglobin A1c goal of less than 7.0%: Code(s): E10.9 - Type 1 diabetes mellitus without complications Category: Medical Plan: Type 1 Diabetes Mellitus Plan: Most recent A1c 8.2% 04/14/2025, increased from 7.9% on 12/14/2024. She does report that she had making multiple changes in her diet. She has multiple misconceptions about Lantus and she would like to stay on NPH and Humulin. Discussed the importance of statins on primary prevention of ACD, but patient refused, citing multiple side effects that she has been told the medication has. I did discussed with her that her LDL in October 2024 was 107, above her goal of <70. - Decrease Humulin R to 22 units to address nocturnal hypoglycemia. - Consider transition from NPH to Lantus for more stable blood glucose control. - Provided sliding scale for Novolin N - Introduce CGM (Brendan 3 Plus) with spud grader for continuous monitoring. - Screen for complications of DM, she already has retinopathy - Reinforce diet adjustments and exercise routine. - Discuss potential transition to insulin pump therapy depending on antibody test results for type 1 diabetes confirmation. - Monitor blood glucose before meals and at bedtime or rely on CGM. - Schedule telemedicine follow-up if in-person visit is not possible within three months. - Encourage daily foot checks and annual eye and urine albumin screens. - Recommend statin therapy for cardiovascular risk reduction. Hypoglycemia: - Treat blood glucose <70 mg/dL with 15 g fast-acting carbohydrates. - Recheck in 15 minutes; repeat if still <70 mg/dL. - Use glucagon for severe hypoglycemia. Hyperglycemia: - Check ketones if blood glucose >250 mg/dL repeatedly or during illness. - Provide correction insulin, hydrate, and rest. - Seek urgent care if experiencing vomiting, abdominal pain, fruity breath, or rapid breathing (2) Thyroid goiter: Code(s): E04.9 - Nontoxic goiter, unspecified Category: Medical Plan: 70 minutes spent reviewing previous records, labs, imaging, education and documenting in the chart (3) Hypothyroidism: Code(s): E03.9 - Hypothyroidism, unspecified Category: Medical Qualifiers: Hypothyroidism type: acquired Qualified Code(s): E03.9 - Hypothyroidism, unspecified Plan: Hypothyroidism Monitor thyroid function with TSH tests in six-month Continue levothyroxine 75 mcg daily and monitor symptoms. Ensure follow-up in September or via telemedicine if possible. Address acid reflux and swallowing issues likely not related to thyroid enlargement with primary care provider. Plan 70 minutes spent reviewing previous records, labs, imaging, education and documenting in the chart Orders: Orders Islet Cell Antibody Scrn/Titer Today E10.9 - Type 1 diabetes mellitus without complications Microalbumin, Random (w Creat) Today E10.9 - Type 1 diabetes mellitus without complications Glutamic acid decarboxylase Ab Today E10.9 - Type 1 diabetes mellitus without complications Insulinoma associated 2 aatb Today E10.9 - Type 1 diabetes mellitus without complications Referrals Diabetes Education Referral E10.9 - Type 1 diabetes mellitus without complications Medications: New blood-glucose,spud grader,cont (FreeStyle Brendan 3 Stokes) As directed 1 ea 0RF E10.9 - Type 1 diabetes mellitus without complications blood-glucose sensor (FreeStyle Brendan 3 Plus Sensor device) As directed to check BG continuously for T1DM with hypoglycemia. 1 ea 0RF E10.9 - Type 1 diabetes mellitus without complications Patient Instructions: Decrease NPH to 22 unit Continues Humulin N based on SS Blood Sugar (mg/dL) Small Meal (low carb <30g like salad, eggs with meat) Normal Meal (30?60g like sandwich, chips, meat, small starch portion) Large Meal (>60g like pizza, lasagna, Syriac food, meal + dessert) <70 70?100 2 4 7 101?150 3 5 8 151?200 4 6 9 201?250 6 8 11 251?300 7 9 12 301?350 8 10 13 351?400 9 11 14 >400 11 13 16 Coding Level of Care Code Complex visit Add On G2211 Diagnoses Type 1 diabetes mellitus with hemoglobin A1c goal of less than 7.0% E10.9 Thyroid goiter E04.9 Acquired hypothyroidism E03.9 Hypothyroidism type: acquired
--- OUTSIDE RECORDS SUMMARY | 2025-04-19 10:53 | XMS_ITS | Clinical Summary ---
Author Organization [facility] Address [address] [place], [place] [id number] Phone Care Team Providers Care Executive Consultant Name Role Phone Nic Mcghee MD Primary Care Provider +1- [phone] Allergies Active Allergy Reactions Criticality Noted Date [...] necrotizing fasciitis in the perineum. Our surgeon travel sales consultant and classification counselor travel sales consultant are not comfortable assessing or intervening in [...] on her face). REC: Transfer tonight for surgical/classification counselor evaluation Add clindamycin Increase Hydration Check lactate [...] in many years and can obtain this [id number] She does not check her blood sugars [...] VACCINE (#1) 2024 COVID-19 VACCINE (1 - 2024- season) 2025 BLOOD PRESSURE 02/02/2025 08/02/2024 SMOKING [...] HEMOGLOBIN A1C 10.0(H) 4.3 - 5.8 % [facility] Blood 01/31/2019 6:14 AM EDT 01/31/2019 6:46 AM EDT us Azalea Beyer MD LAB BLOOD BKR ORDERABLE S Final Result [id number] [id number] from Last 3 Months or Most Recently Relevant to Health Maintenance Insurance [facility] MEDICARE REPLACEMENT [address] [place] [address] RE[address] [place] [address] [facility] MEDICARE REPLACEMENT [facility] MEDICARE REPLACEMENT [facility]ICARE [facility] MEDICARE [facility]ACEMENT [facility] MEDICARE [facility]PLACEMENT [facility] MEDICARE REPLACEMENT [facility] MEDICARE REPLACEMENT [facility] MEDICARE REPLACEMENT [facility] MEDICARE REPLACEMENT Advance Directives For more information, please contact: [phone] (9AM - 5PM [facility], Friday-Friday) * Full Code (Confirmed) (Latest Code Status on File) Date Activated Date Inactivated Comments 01/30/2019 6:08 AM 02/01/2019 12:23 AM Question Answer Comments Code Status Confirmed With: Patient Care Teams Executive Consultant Relationship Specialty Start Date End Date Nic Mcghee MD [address] [place] [id number] PCP - General Internal Medicine 08/02/24 Additional Source Comments The information contained in this document represents components of the legal health record. It is not the complete legal health record.[facility]
--- OUTSIDE RECORDS SUMMARY | 2025-04-19 10:53 | XMS_ITS | Encounter Summary ---
Author Organization [facility] Address [address] [place], [place] [id number] Phone Care Team Providers Care Lining Presser Name Role Phone Pcp, Unknown Primary Care Provider Nic Munoz MD Primary Care Provider [phone]- [phone] Encounter Details Date Type Department Care Team (Late st Contact Info) Description 02/02/2019 Documentation [facility] Infectious Disease Virtual Department [address] [place] [address] [phone] Pcp, Not Required [address] [place] [address] Social History Tobacco Use Types Packs/Day Years [...] documented as of this encounter Care Teams Lining Presser Relationship Specialty Start Date End Date Pcp, Unknown PCP - General 01/29/19 08/01/24 Nic Mcghee MD [address] [place] [phone] PCP - General Internal Medicine 08/02/24 documented as of this encounter Additional Source Comments The information contained in this document represents components of the legal health record. It is not the complete legal health record.[facility]
== END 2025-04-19 10:50 | disposition home or self-care (01) ==
LOC: HO.ENCR 09:48
PROVIDERS: PCP Physician Assistant Medical; Visit Provider Student in an Organized Health Care Education/Training Program
DX: E10.9 Type 1 diabetes mellitus without complications (principal); E04.9 Nontoxic goiter, unspecified; E03.9 Hypothyroidism, unspecified
CPT/HCPCS: 99205; G2211

== ENCOUNTER → 2025-04-19 09:48 | Outpatient (BNVA) | payer MEDICARE, SELFPAY | PROVIDERS: PCP Physician Assistant Medical; Visit Provider Student in an Organized Health Care Education/Training Program | DX: E10.9 Type 1 diabetes mellitus without complications (principal); E04.9 Nontoxic goiter, unspecified; E03.9 Hypothyroidism, unspecified; Z79.899 Other long term (current) drug therapy | CPT/HCPCS: 99202 ==

== ENCOUNTER 2025-04-20 07:49 | Outpatient (AMB) | payer MEDICARE, SELFPAY ==
--- OUTSIDE RECORDS SUMMARY | 2025-04-20 07:53 | XMS_ITS | Encounter Summary ---
Author Organization [facility] Address [address] [place], [place] [id number] Phone Care Team Providers Care Denial Management Representative Name Role Phone Pcp, Unknown Primary Care Provider Nic Munoz MD Primary Care Provider +1- [phone] Encounter Details Date Type Department Care Team (Late st Contact Info) Description 02/02/2019 Documentation [facility] Infectious Disease Virtual Department [address] [place] [phone] Pcp, Not Required [address] [place] [address] Social History Tobacco Use Types Packs/Day Years [...] documented as of this encounter Care Teams Denial Management Representative Relationship Specialty Start Date End Date Pcp, Unknown PCP - General 01/29/19 08/01/24 Nic Mcghee MD [address] [place] [phone] PCP - General Internal Medicine 08/02/24 documented as of this encounter Additional Source Comments The information contained in this document represents components of the legal health record. It is not the complete legal health record.[facility]
--- OUTSIDE RECORDS SUMMARY | 2025-04-20 07:53 | XMS_ITS | Clinical Summary ---
Author Organization [facility] Address [address] [place], [place] [id number] Phone Care Team Providers Care Food Service Sales Representatives Name Role Phone Nic Mcghee MD Primary Care Provider [phone] Allergies Active Allergy Reactions Criticality Noted Date [...] necrotizing fasciitis in the perineum. Our surgeon mobile application architect and grocery supervisor mobile application architect are not comfortable assessing or intervening in [...] on her face). REC: Transfer tonight for surgical/grocery supervisor evaluation Add clindamycin Increase Hydration Check lactate [...] in many years and can obtain this [id number] She does not check her blood sugars [...] HEMOGLOBIN A1C 10.0(H) 4.3 - 5.8 % [facility] Blood 01/31/2019 6:14 AM EDT 01/31/2019 6:46 AM EDT us Azalea Beyer MD LAB BLOOD BKR ORDERABLE S Final Result [id number] [id number] from Last 3 Months or Most Recently Relevant to Health Maintenance Insurance [facility] MEDICARE [place] [address] [place] [address] [place] [address] MEDICARE REPLACEMENT [facility] MEDICARE [facility]PLACEMENT [facility] MEDICARE REPLACEMENT [facility] MEDICARE REPLACEMENT [facility] MEDICARE REPLACEMENT [facility] MEDICARE REPLACEMENT [facility] MEDICARE REPLACEMENT [facility] MEDICARE REPLACEMENT [facility] MEDICARE REPLACEMENT [facility] MEDICARE REPLACEMENT Advance Directives For more information, please contact: [phone] (9AM - 5PM [facility], Friday-Friday) * Full Code (Confirmed) (Latest Code Status on File) Date Activated Date Inactivated Comments 01/30/2019 6:08 AM 02/01/2019 12:23 AM Question Answer Comments Code Status Confirmed With: Patient Care Teams Food Service Sales Representatives Relationship Specialty Start Date End Date Nic Mcghee MD [address] [place] [id number] PCP - General Internal Medicine 08/02/24 Additional Source Comments The information contained in this document represents components of the legal health record. It is not the complete legal health record.[facility]
[2025-04-20 08:03] VITALS: BP 130/70; PULSE 97; O2SAT 97; BMI 39.3
--- NOTE | 2025-04-20 08:03 | MHC.OFFVIS ---
Vital Signs 04/20/25 08:03 Height 6 ft 0.05 in Weight 289 lb 14.526 oz BMI 39.3 BP 130/70 Blood Pressure Location Lt brachial Position Sitting Pulse 97 Pulse Source Pulse Oximeter Pulse Oximetry (%) 97 Oxygen Delivery Method Room Air Intake Visit Reasons: Sjogren syndrome Intake Note: Patient is a new patient, internally referred by DELBERT Braun for pain in her throat. Laundry Superintendent Required: No Allergies sulfamethoxazole (From Bactrim) Allergy (Mild, Verified 04/20/25 08:07) Hives trimethoprim (From Bactrim) Allergy (Mild, Verified 04/20/25 08:07) Hives HPI Comments Details: 69 year old female with a PMH of diabetes long standing, hypothryoidsim She reports symptoms have been there for 10 years, dry mouth dry skin. She has been losing teeth. She does not feel like she has dry eyes but declared she is legally blind in 2023,she has ni peripheral vision In July 2024, she had a feeling of sore throat but wa negative for all infectious etiologies. She went to the PCP for further testing of her throat, she had a CT scan which showed an enlarged and likely goiterous thyroid. 2. There is atrophy of the salivary glands. Consider Sjogren syndrome under the appropriate clinical circumstances CASSANDRA positive, 1: 1280 high titer, IgG 334, RF 40.1 CASSANDRA pattern nuclear centromere SSA SSB negative scleroderma antibody panel pending RNA polymerase 3 pending centromere antibody positive C3-C4 normal ROS: she endorses photosensitivity she gets painful canker sores. 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 She states she feels breathless when she climbs stairs no night sweats no weight loss, she endorses fatigue. she notices difficulty swallowing food Hand xrays show arthropathy of the PIPs DIPs, erosions noted in the DIPs. Vital signs reviewed Physical Examination CONSTITUITIONAL Patient alert and cooperative. Well appearing and in no apparent painful distress HEENT Conjunctiva and sclera clear. No lymphadenopathy. CHEST/RESPIRATORY SYSTEM Normal respiratory effort and able to speak in complete sentences. Clear to auscultation bilaterally. No crackles, rales, rhonchi, wheezes heard. CARDIAC SYSTEM Regular rate and rhythm. S1 and S2 heard no murmurs. Radial pulses intact bilaterally MSK Patient is able to make a fist bilaterally, she has skin thickening distal to all her PIPs, her nailfold capillaries look tortuous. She has tender PIPs on the right 3rd 4th and left 3rd 4th 5th. No swelling noted. Full range of motion in the upper extremities, limited range of motion in the lower extremities, particularly the hips, there is pain on internal rotation. There is swelling bilaterally nonpitting in the lower extremities SKIN Skin thickening noted distal to the PIPs on all fingers. 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, right leg worse than left PFS Medical History (Updated 04/20/25 @ 09:05 by Cristin Mitchell MD) Centromere antibody positive Positive CASSANDRA (antinuclear antibody) Atrophy of salivary gland Thyroid goiter Vitamin D deficiency Subclinical hypothyroidism Obesity, morbid, BMI 40.0-49.9 Dual energy x-ray photon absorptiometry (DEXA) scan declined (~12/14/24) Colonoscopy refused (~12/14/24) Mammogram declined (~12/14/24) Hypothyroidism Hyperlipidemia LDL goal <70 CKD (chronic kidney disease) Edema Type 1 diabetes mellitus with hemoglobin A1c goal of less than 7.0% Throat pain Surgical History History of gastrointestinal surgery Family History Father Prostate cancer Mother Non Hodgkin's lymphoma H/O kidney removal Social History Housing: House Alcohol intake: current Alcohol intake frequency: does not drink Patient Tobacco Use Status: Never used Tobacco service: No Current occupational status: retired Cognitive needs: No Hearing needs: No Vision needs: Yes (rx glasses) Physical Exam Vital Signs: Last Vital Signs Pulse 97 04/20/25 08:03 BP 130/70 04/20/25 08:03 Pulse Ox 97 04/20/25 08:03 Oxygen Delivery Method Room Air 04/20/25 08:03 BMI result Body Mass Index 39.3 Assessment & Plan Assessment & Plan (1) Positive CASSANDRA (antinuclear antibody): Code(s): R76.89 - Other specified abnormal immunological findings in serum Category: Medical (2) Centromere antibody positive: Code(s): R76.89 - Other specified abnormal immunological findings in serum Category: Medical (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 She is presenting with dry mouth, has atrophy of the salivary glands, skin thickening distal to all PIPs, dental caries, difficulty swallowing. She does not endorse Raynaud's, she has some pinpoint nailfold capillary dilatation. Blood work shows a positive CASSANDRA high titer nuclear pattern, elevated IgG levels, negative SSA SSB Based on her history, physical exam and lab work I have a high suspicion suspicion for limited scleroderma/Sjogren's disease overlap. I will like to get a biopsy of the salivary gland with immunofluorescence to rule out IgG4 related disease and to confirm the above diagnosis referring to ENT. I would also like pulmonology input, with pulmonary function tests to see if this any pulmonary involvement from limited scleroderma. I would also like to get an echocardiogram to assess for pulmonary hypertension. I would also like to have gastroenterology referral to perform upper endoscopy in light of this patient's history of esophageal dysphagia, and to look for findings of gastric antral vascular ectasia and gave in her stomach which can occur in limited scleroderma patients. In the interim I will obtain hepatitis-B C serologies, QuantiFERON, SPEP, UPEP with immunofixation, pending scleroderma antibody panel, I will also obtain urine studies. I will also request a CT chest to look for ground-glass opacities seen in autoimmune connective tissue disease,, as well as CT abdomen and pelvis to look for retroperitoneal masses that can occur in IgG4 related disease. She is a very complex patient, and care is currently even more challenging as she has to go to [place] right after Jesus of this year for 5 months. This will delay her care and the coordination of other specialties seeing her. However patient states that it is urgent for her to go, she is agreeable for me to place in all the referrals and orders and if she can be seen before she leaves she will do so otherwise she states she will come back and then follow-up with the specialists Orders: Orders Quantiferon TB Gold Plus 1 Today Z79.899 - Other technician terminal and repeater (current) drug therapy Erythrocyte Sedimentation Rate Today Z79.899 - Other technician terminal and repeater (current) drug therapy C Reactive Protein Today Z79.899 - Other technician terminal and repeater (current) drug therapy Protein Electrophoresis, Serum Today M34.9 - Systemic sclerosis, unspecified, R76.89 - Other specified abnormal immunological findings in serum CT chest wo IV con Today R76.89 - Other specified abnormal immunological findings in serum Protein Electrophoresis,Ran Ur Today R76.89 - Other specified abnormal immunological findings in serum Protein Creatinine Ratio, Ur Today M32.9 - Systemic lupus erythematosus, unspecified Hepatitis B,C Profile Today Z79.899 - Other assisted (current) drug therapy Immunofixation Pnl, Serum Today R76.89 - Other specified abnormal immunological findings in serum XR Hand Destin 2V Today R76.89 - Other specified abnormal immunological findings in serum CT abdomen pelvis wo IV con Today R76.89 - Other specified abnormal immunological findings in serum UA and rflx microscopic Today M32.9 - Systemic lupus erythematosus, unspecified Referrals Pulmonology Referral R76.89 - Other specified abnormal immunological findings in serum Ear/Nose/Throat Referral K11.0 - Atrophy of salivary gland Gastroenterology Referral M34.9 - Systemic sclerosis, unspecified Coding Level of Care Code New Pt Level 5 (06139) Diagnoses Positive CASSANDRA (antinuclear antibody) R76.89 Centromere antibody positive R76.89 Limited scleroderma M34.9 Atrophy of salivary gland K11.0
== END 2025-04-20 09:21 | disposition home or self-care (01) ==
LOC: HO.RHES 07:50
PROVIDERS: PCP Physician Assistant Medical; Visit Provider Student in an Organized Health Care Education/Training Program
DX: R76.89 Other specified abnormal immunological findings in serum (principal); M34.9 Systemic sclerosis, unspecified; K11.0 Atrophy of salivary gland
CPT/HCPCS: 99204

== ENCOUNTER → 2025-04-20 07:49 | Outpatient (BNVA) | payer MEDICARE, SELFPAY | PROVIDERS: PCP Physician Assistant Medical; Visit Provider Student in an Organized Health Care Education/Training Program | DX: K11.0 Atrophy of salivary gland (principal); M34.9 Systemic sclerosis, unspecified; R76.89 Other specified abnormal immunological findings in serum; Z79.899 Other long term (current) drug therapy | CPT/HCPCS: 99202 ==

== ENCOUNTER 2025-04-25 09:35 | Outpatient (REF) | payer MEDICARE, SELFPAY ==
--- NOTE | ~2025-04-25 | XR_ITS ---
Exam: XR HAND 3 VIEWS BILATERAL, bilateral hand x-rays TECHNIQUE: Four views upper extremity, bilateral hands INDICATION: R76.89 - Other specified abnormal immunological findings in serum COMPARISON: None available. FINDINGS: RIGHT HAND: There is diffuse osteopenia. There is severe narrowing of the DIP joint of the second digit PIP joints of the third and fifth digit. There is moderate narrowing of the DIP joints of the third, fourth, fifth digit and PIP joint of the second and fourth. There is sclerosis with degenerative cystic changes and marginal osteophytes involving the second DIP joint and the third, fourth, and fifth PIP joints. LEFT HAND: There is diffuse osteopenia. There is severe joint space narrowing with marginal osteophytes involving second, third, fourth, fifth DIP joints and the second and third PIP joints. There is mild sclerosis and narrowing of the first CMC joint. Minimal osteophytes are noted at the margins the IP joint of thumb. XR/XR Hand Bilat min 3v IMPRESSION: Osteopenia, bilateral hands. Osteoarthritis, bilateral hands. Electronically signed by: Imtiaz Stone MD 04/25/2025 10:30 AM [facility]
[2025-04-25 13:43] LABS: Appearance Urine Clear; Glucose Urine UA Negative (Negative); PH 5.5 (5.0-9.0); Specific Gravity - Urine 1.015 (1.005-1.025); UMIC TRIGGER UACC YES
[2025-04-25 13:50] LABS: UACC Culture Trigger YES
[2025-04-25 14:30] LABS: Erythrocyte Sedimentation Rate 34 MM/HR (0-20)
[2025-04-25 14:37] LABS: Protein/Creatinine Ratio, Ur 0.12 (<0.2); Total Protein Urine Random 8 mg/dL (<12)
[2025-04-25 14:39] LABS: Microalbum/Creatinine Ratio Ur 8.6 ug/mg cr (<30)
[2025-04-26 04:12] LABS: HBS Num1 0.00 mIU/mL (0-7.99); HBc Num1 0.50 S/CO (0.00-0.79); HBsAGNum1 0.83 S/CO (0.00-0.99); Hepatitis B Surface Antigen Negative (Negative); ~HepC Num1 0.22 S/CO (0.00-0.79); ~Hepatitis B Surface Antibody NONREACTIVE (Nonreactive); ~Hepatitis C Antibody Nonreactive (Nonreactive)
== END 2025-04-25 09:36 | disposition home or self-care (01) ==
LOC: HO.HMGCX 09:35
PROVIDERS: Absent Provider Student in an Organized Health Care Education/Training Program; PCP Physician Assistant Medical; Visit Provider Student in an Organized Health Care Education/Training Program
DX: E10.9 Type 1 diabetes mellitus without complications (principal); M34.9 Systemic sclerosis, unspecified; M32.9 Systemic lupus erythematosus, unspecified; R76.89 Other specified abnormal immunological findings in serum; Z79.899 Other long term (current) drug therapy
CPT/HCPCS: 36415; 73130; 81001; 82043; 82570; 82784; 84156; 84165; 84166; 85652; 86140; 86334; 86341; 86480; 86704; 86706; 86803; 87086; 87340

== ENCOUNTER → 2025-04-25 10:06 | Outpatient (BNV) | payer MEDICARE, SELFPAY | PROVIDERS: Absent Provider Student in an Organized Health Care Education/Training Program; PCP Physician Assistant Medical; Visit Provider Radiology Diagnostic Radiology | DX: M19.041 Primary osteoarthritis, right hand (principal); M19.042 Primary osteoarthritis, left hand; M85.841 Other specified disorders of bone density and structure, right hand; M85.842 Other specified disorders of bone density and structure, left hand | CPT/HCPCS: 73130 ==

== ENCOUNTER 2025-04-29 09:43 | Outpatient (REF) | payer MEDICARE, SELFPAY ==
--- NOTE | 2025-04-29 09:48 | PFT_ITS ---
Spirometry [] Lung Volumes [] Diffusion Capacity [] Methacholine Challenge [] Flow Volume Loops [] MVV [] MIP/MEP(Max inspiratory pressure/Max expiratory pressure) [] 6 Minute Walk Test [] ABG [] Interpretation [] MTDD
[2025-04-29 10:24] VITALS: PULSE 88; O2SAT 96
== END 2025-04-29 09:44 | disposition home or self-care (01) ==
LOC: HO.RESP 09:43
PROVIDERS: PCP Physician Assistant Medical; Visit Provider Physician Assistant Medical
DX: K11.0 Atrophy of salivary gland (principal); R76.89 Other specified abnormal immunological findings in serum
CPT/HCPCS: 94060; 94640; 94727; 94729

== ENCOUNTER → 2025-04-29 09:48 | Outpatient (BNV) | payer MEDICARE, SELFPAY | PROVIDERS: PCP Physician Assistant Medical; Visit Provider Internal Medicine Pulmonary Disease | DX: R76.89 Other specified abnormal immunological findings in serum (principal) | CPT/HCPCS: 94060; 94727; 94729 ==

== ENCOUNTER 2025-05-02 14:01 | Outpatient (REF) | payer MEDICARE, SELFPAY ==
--- OUTSIDE RECORDS SUMMARY | 2024-10-27 05:15 | XMS_ITS ---
Author Organization [facility] Address [address] [place] [address] Care Team Providers Care Arc Trimmer Name Role Phone Trina Benitez Primary Care Provider Lucy Bautista Unavailable [phone] Demetrius Dorman Unavailable [phone] Encounters Encounter Location Date Provider Diagnosis [facility] [address] [place] [address] 10/27/2024 Demetrius Dorman Plan Of Treatment No Information Progress Notes * Jossie YEBOAHDOB:[birth year] (69 yo F)Acc No.[id number]:10/27/2024 Progress Note Patient: Jossie LAGUERRE Provider: Margoth Whiteside DPM :1955 A ge:69 Y S ex:Female Date:10/27/2024 Address:[address] [id number] Pcp:Trina Benitez Subjective: * Chief Complaints: * [...] 10/27/2024 Generated for Jose alfonso/Cee/eTransmitting on: 1 07/03/2024 08:27 PM EST
--- OUTSIDE RECORDS SUMMARY | 2024-10-28 05:00 | XMS_ITS ---
Author Organization [facility] Address [address] [place] [address] Care Team Providers Care Roll Forming Supervisor Name Role Phone Trina Benitez Primary Care Provider Lucy Bautista [phone] Encounters Encounter Location Date Provider Diagnosis [facility] [address] [place] [address] 10/28/2024 Lucy Anderson Plan Of Treatment No Information Progress Notes * Dorene YEBOAHmarceloDOB:[birth year] (69 yo F)Acc No.[id number]:10/28/2024 Progress Note Patient: Jossie LAGUERRE Provider: Ja Anderson DPM :1955 A ge:69 Y S ex:Female Date:10/28/2024 Address:[address] [id number] Pcp:Trina Benitez Subjective: * Chief Complaints: * [...] DPM Date: 0 10/28/2024 Generated for Printi ng/Faxing/eTransmitting on: 1 07/03/2024 08:26 PM EST
--- OUTSIDE RECORDS SUMMARY | 2024-12-06 04:30 | XMS_ITS ---
Author Organization [facility] Address [address] [place] [address] Care Team Providers Care Import Export Coordinator Name Role Phone Trina Benitez Primary Care Provider Lucy Bautista [phone] Encounters Encounter Location Date Provider Diagnosis [facility] [address] [place] [address] 12/06/2024 Lucy Anderson Plan Of Treatment No Information Progress Notes * Dorene YEBOAHmarceloDOB:[birth year] (69 yo F)Acc No.[id number]:12/06/2024 Progress Note Patient: Jossie LAGUERRE Provider: Ja Anderson DPM :1955 A ge:69 Y S ex:Female Date:12/06/2024 Address:[address] [id number] Pcp:Trina Benitez Subjective: * Chief Complaints: * * Medical History: Objective: * Vitals: Assessment: Plan: * Treatment: * Images: * The named appointment provid er may or may not be the originator of this progress note, and it is not deemed complete until electronically signed by the appointment provider. Sign off status: Pending * Provider: Ja Anderson DPM Date: 0 12/06/2024 Generated for Printi ng/Faxing/eTransmitting on: 1 07/03/2024 08:27 PM EST
--- OUTSIDE RECORDS SUMMARY | 2025-01-24 04:30 | XMS_ITS ---
Author Organization [facility] Address [address] [place] [address] Care Team Providers Care Rough Rice Tender Name Role Phone Trina Benitez Primary Care Provider Lucy Bautista [phone] Encounters Encounter Location Date Provider Diagnosis [facility] [address] [place] [address] 01/24/2025 Lucy Anderson Plan Of Treatment No Information Progress Notes * Dorene YEBOAHmarceloDOB:[birth year] (69 yo F)Acc No.[id number]:01/24/2025 Progress Notes Patient: Jossie LAGUERRE Provider: Ja Anderson DPM :1955 A ge:69 Y S ex:Female Date:01/24/2025 Address[address] [id number] Pcp:Trina Benitez Subjective: * Chief Complaints: * * Medical History: Objective: * Vitals: Assessment: Plan: * Treatment: * Images: * The named appointment provid er may or may not be the originator of this progress note, and it is not deemed complete until electronically signed by the appointment provider. Sign off status: Pending * Provider: Ja Anderson DPM Date: 0 01/24/2025 Generated for Printi ng/Faxing/eTransmitting on: 1 07/03/2024 08:26 PM EST
--- OUTSIDE RECORDS SUMMARY | 2025-02-09 11:00 | XMS_ITS ---
Author Organization [facility] Address [address] [place] [address] Care Team Providers Care Invoice Checker Name Role Phone Trina Benitez Primary Care Provider Lucy Bautista [phone] Medications Medication SIG (Take, Route, Frequency, Duration) Notes Start Date End Date Status Zinc Active Physical Therapy . . . 2-3x/week; Duration: 3-4 weeks Not-Taking Extra Depth Diabetic Shoes with 3 Pair Custom heat-molded multi-density innersoles for 1 year Dx: Not-Taking Insulin 12 units Active Levoxyl Active Vitamin D3 Active Encounters Encounter Location Date Provider Diagnosis [facility] [address] [place] [address] 02/09/2025 Lucy Anderson Plan Of Treatment No Information Progress Notes * OBINNADorenemarceloDOB:[birth year] (69 yo F)Acc No.[id number]:02/09/2025 Progress Notes Patient: Jossie LAGUERRE Provider: Ja Anderson DPM :1955 A ge:69 Y S ex:Female Date:02/09/2025 Address:[address] [place] Pcp:Trina Benitez Subjective: * Chief Complaints: * * Medical History: * Medications: T aking Insulin , Notes to Pharmacist: 12 units, Taking Levoxyl , Taking Vitamin D3 , Taking Zinc , Not-Taking/PRN Physical Therapy . . . . 2-3x/week , Not-Taking/PRN Extra Depth Diabetic Shoes with 3 Pair Custom heat-molded multi-density innersoles for 1 year Dx: Objective: * Vitals: Assessment: Plan: * Treatment: * Images: * The named appointment provid er may or may not be the originator of this progress note, and it is not deemed complete until electronically signed by the appointment provider. Sign off status: Pending * Provider: Ja Anderson DPM Date: 0 02/09/2025 Generated for Jose alfonso/Cee/Antonieta on: 1 07/03/2024 08:26 PM EST
--- NOTE | ~2025-05-02 | CT_ITS ---
EXAMINATION: CT ABDOMEN PELVIS WITHOUT IV CONTRAST HISTORY: R76.89 - Other specified abnormal immunological findings in serum COMPARISON: There are no prior studies available for comparison. TECHNIQUE: CT scan of the abdomen and pelvis was performed without contrast using standard departmental protocol. Coronal and sagittal reformatted images were generated and reviewed. This CT exam was performed with one or more of the following dose reduction techniques: automated exposure control, adjustment of the mA and/or kV according to patient size, use of iterative reconstruction technique. DLP: 777 mGy-cm FINDINGS: LIVER: The liver is normal in size and contour. The liver has an unremarkable unenhanced appearance. GALLBLADDER / BILE DUCTS: The gallbladder is unremarkable. There is no intra or extrahepatic biliary ductal dilatation. SPLEEN: The spleen is normal in size and has an unremarkable unenhanced appearance. There is a small splenule. PANCREAS: The pancreas has an unremarkable unenhanced appearance. ADRENAL GLANDS: Unremarkable. KIDNEYS/RETROPERITONEUM: Small right renal upper pole calcifications, question vascular calcifications versus small stones. There is a partially duplicated left renal collecting system. There may be mild left upper pole calyceal dilatation. No hydronephrosis, ureteral dilatation or ureteral stone. LYMPH NODES: Small retroperitoneal lymph nodes in the abdomen and pelvis. No enlarged lymph nodes. Small bilateral inguinal lymph nodes. VASCULATURE: Atherosclerotic disease. No aneurysm. MESENTERY/PERITONEUM: No free fluid. No masses. There is no free intraperitoneal gas. STOMACH: Normal SMALL BOWEL: The small bowel is normal in caliber. COLON: The colon is unremarkable. APPENDIX: Normal. URINARY BLADDER/PELVIC ORGANS: Mild diffuse bladder wall thickening. No stone or mass appreciated. Uterus and adnexa are unremarkable. BONES / SOFT TISSUES: Degenerative changes of the spine and hip joints. Small umbilical hernia containing fat. CT/CT abdomen pelvis wo IV con IMPRESSION: Mild diffuse bladder wall thickening. Appearance suggestive of cystitis. Partially duplicated left renal collecting system and mild left upper pole calyceal dilatation. No hydronephrosis. Small right upper pole renal calcifications, question vascular calcifications versus small stones. Electronically signed by: Rukhsana Ramirez MD 05/02/2025 03:47 PM [facility]
--- NOTE | ~2025-05-02 | CT_ITS ---
EXAMINATION: CT CHEST WITHOUT IV CONTRAST INDICATION: R76.89 - Other specified abnormal immunological findings in serum COMPARISON: Neck CT January [address] December 2019 TECHNIQUE: Helical CT scan of the chest was performed without intravenous contrast. Coronal and sagittal reformatted images were generated and reviewed. This CT exam was performed with one or more of the following dose reduction techniques: automated exposure control, adjustment of the mA and/or kV according to patient size, use of iterative reconstruction technique. DLP: 216 mGy-cm CHEST: THYROID: The thyroid gland is enlarged. This appears similar to December [address] There may be inferior extension or nodule extending into the left superior mediastinum unchanged. LUNGS: 3 mm peripheral or subpleural left lower lobe nodule adjacent to the major fissure axial image 70 series 4. There are several new pulmonary nodules. 5 mm left upper lobe nodule axial image 60 series 4. 2 mm peripheral or subpleural left lower lobe nodule adjacent to the major fissure axial image 84 series 4. 3 mm lower lobe nodule axial image 84 series series 4. 3 mm left lower lobe nodule axial image 101 series 4. MEDIASTINUM: No enlarged mediastinal lymph nodes. MICHAEL: Evaluation of the hilar regions is limited by lack of intravenous contrast material. CARDIOVASCULATURE: The heart is normal in size. Trace pericardial fluid or thickening. The thoracic aorta is normal in caliber. DEGREE OF CORONARY CALCIFICATION: mild PLEURA: There is no pleural effusion. No pneumothorax. MAIN AIRWAYS: The mainstem bronchi and proximal branches are patent. AXILLA: There is no axillary lymphadenopathy. No chest wall mass. BONES AND SOFT TISSUES: Subcutaneous nodule in the left upper lateral anterior chest measuring 8 mm axial image 10 series 3. This is increased from 2020 exam. Small 5 mm sclerotic lesion in the left T9 vertebral body. This is new from previous exam. Mild degenerative changes of the spine. UPPER ABDOMEN: See abdominal and pelvic CT report from the same day. CT/CT chest wo IV con IMPRESSION: Several new small pulmonary nodules, largest measuring 5 mm in the left upper lobe from [address] chest CT follow-up in 6-12 months. New 5 mm nonspecific sclerotic density in the left T9 vertebral body. This can be reassessed at time of follow-up chest CT as well. Enlarged thyroid gland similar to [address] This could be better assessed with thyroid ultrasound if clinically warranted. Interval increase in subcutaneous nodule in the left upper anterior chest wall measuring 8 mm. Clinical correlation recommended. Electronically signed by: Rukhsana Ramirez MD 05/02/2025 03:47 PM [facility]
--- OUTSIDE RECORDS SUMMARY | 2025-05-02 20:27 | XMS_ITS | Encounter Summary ---
Author Organization [facility] Address [address] [place], [place] [address] Phone Care Team Providers Care Blankbook Stitching Machine Operator Name Role Phone Pcp, Unknown Primary Care Provider Nic Munoz MD Primary Care Provider [phone]- [phone] Encounter Details Date Type Department Care Team ([facility] st Contact Info) Description 02/02/2019 Documentation [facility] Infectious Disease Virtual Department [address] [place] [address] [phone] Pcp, Not Required Social History Tobacco Use Types Packs/Day Years [...] documented as of this encounter Care Teams Blankbook Stitching Machine Operator Relationship Specialty Start Date End Date Pcp, Unknown PCP - General 01/29/19 08/01/24 Nic Mcghee MD [address] [place] [phone] (work) PCP - General Internal Medicine 08/02/24 documented as of this encounter Additional Source Comments The information contained in this document represents components of the legal health record. It is not the complete legal health record.[facility]
--- OUTSIDE RECORDS SUMMARY | 2025-05-02 20:27 | XMS_ITS | Patient Health Record ---
Author Organization [facility] Address [address] [place] [address] Care Team Providers Care Director Of Advertising Sales Name Role Phone Trina Benitez Primary Care Provider Lucy Bautista Unavailable [phone] Demetrius Dorman Unavailable [phone] Allergies No Known Allergies Results Component Value Reference Range Notes HEMOGLOBIN A1C (GLYCOHEMOGLO BIN) Reviewed date:12/09/2024 03:41:00 PM Interpretation: Performing Lab: Notes/Report: HEMOGLOBIN A1C % (HH) 7.2 Reason For Referral No Information Medications Medication SIG (Take, Route, Frequency, Duration) Notes Start Date End Date Status Extra Depth Diabetic Shoes with 3 Pair Custom heat-molded multi-density innersoles for 1 year Dx: Not-Taking Physical Therapy . . . 2-3x/week; Duration: 3-4 weeks Not-Taking Insulin 12 units Active Vitamin D3 Active Levoxyl Active Zinc Active Immunizations Vaccine Route Administration Date Status [...] Polyneuropathy due to type 2 diabetes mellitus (163449836) Type 2 diabetes mellitus with diabetic polyneuropathy (E11.42) Active confirmed Problem Foot ulcer due to type 2 diabetes mellitus (5835228687678) Skin ulcer of toe of left foot with fat layer exposed (L97.522) Active confirmed Vital Signs Blood pressure diastolic 60 mm Hg 02/10/2025 Height 6 ft in 02/10/2025 Blood pressure systolic 126 mm Hg 02/10/2025 Weight 240 lbs 02/10/2025 BMI 32.55 kg/m2 02/10/2025 Procedures Procedure Date Ordered Date Performed Result Body Sit e 71495-PZMYFGL NAIL, 6 OR MORE 12/09/2024 N/A 94246-ACIXFOU SKIN/TISSUE 12/09/2024 N/A 07536-QJXV SKIN LESIONS, 2 TO 4 12/09/2024 N/A Encounters Encounter Location Date Provider Diagnosis [address] [address] 12/09/2024 Lucy Anderson Type 2 diabetes mellitus with diabetic polyneuropathy E11.42 ; Tinea unguium B35.1 and Skin ulcer of toe of left foot with fat layer exposed L97.[address] [address] 02/10/2025 Lucy Anderson Type 2 diabetes mellitus with diabetic polyneuropathy E11.42 ; Tinea unguium B35.1 and Skin ulcer of toe of left foot with fat layer exposed L97.[address] [address] 10/19/2024 Lucy Anderson [address] [address] 01/04/2025 Lucy Anderson [address] [address] 02/09/2025 Lucy Anderson Assessments Encounter Date Diagnosis (ICD Code) Assessment Notes Treatment Notes Treatment Clinical Notes Section Notes 12/09/2024 Type 2 diabetes mellitus with diabetic polyneuropathy (ICD-10 - E11.42) 12/09/2024 Tinea unguium (ICD-10 - B35.1) 02/10/2025 Type 2 diabetes mellitus with diabetic polyneuropathy (ICD-10 - E11.42) 02/10/2025 Tinea unguium (ICD-10 - B35.1) 02/10/2025 Skin ulcer of toe of left foot with fat layer exposed (ICD-10 - L97.522) Patient Educated with: WOUND CARE INSTRUCTIONS. pdf (WOUND CARE INSTRUCTIONS. pdf) 12/09/2024 Skin ulcer of toe of left foot with fat layer exposed (ICD-10 - L97.522) Patient Educated with: WOUND CARE INSTRUCTIONS. pdf (WOUND CARE INSTRUCTIONS. pdf) Plan Of Treatment Pending Test Test Name Order Date X ray : Foot, left 3V 12/03/2023 X ray : Foot, left 3V 11/15/2020 [id number] NAIL, 6 OR MORE 12/09/2024 94912-[id number] SKIN/TISSUE 12/09/2024 78516-PSPA SKIN LESIONS, 2 TO 4 12/10/19 76019-WHEW SKIN LESIONS, 2 TO 4 02/22/20 Insurance Providers Payer Name Payer Address Payer Phone Subscriber Number Group Number Insured Name Patient Relationship to Insured Coverage Start Date Coverage End Date [employer] [address] [place] [phone] [id number] Jossie Melo Self - patient is the insured Medical (General) History Medical History History ICD Code Diabetic type l thyroid Measles Mumps Chicken pox Surgical History Surgery Date(Month/Year) infection 01/29/2019 dental 06/2021
== END 2025-05-02 14:02 | disposition home or self-care (01) ==
LOC: HO.CT 14:01
PROVIDERS: PCP Physician Assistant Medical; Visit Provider Student in an Organized Health Care Education/Training Program
DX: R76.89 Other specified abnormal immunological findings in serum (principal)
CPT/HCPCS: 71250; 74176

== ENCOUNTER → 2025-05-02 14:04 | Outpatient (BNV) | payer MEDICARE, SELFPAY | PROVIDERS: PCP Physician Assistant Medical; Visit Provider Radiology Diagnostic Radiology | DX: N32.89 Other specified disorders of bladder (principal); N20.0 Calculus of kidney; E04.9 Nontoxic goiter, unspecified; R91.8 Other nonspecific abnormal finding of lung field | CPT/HCPCS: 71250; 74176 ==

== ENCOUNTER 2025-05-10 10:29 | Outpatient (AMB) | payer MEDICARE, SELFPAY ==
--- OUTSIDE RECORDS SUMMARY | 2024-10-27 05:15 | XMS_ITS ---
Author Organization [facility] Address [address] [place] [address] Care Team Providers Care Workers Compensation Examiner Name Role Phone Trina Benitez Primary Care Provider Lucy Bautista Unavailable [phone] Demetrius Dorman Unavailable [phone] Encounters Encounter Location Date Provider Diagnosis [facility] [address] [place] [address] 10/27/2024 Demetrius Dorman Plan Of Treatment No Information Progress Notes * Jossie YEBOAHDOB:[birth year] (69 yo F)Acc No.[id number]:10/27/2024 Progress Note Patient: Jossie LAGUERRE Provider: Margoth Whiteside DPM :1955 A ge:69 Y S ex:Female Date:10/27/2024 Address:[address] [id number] Pcp:Trina Benitez Subjective: * Chief Complaints: * * Medical History: Objective: * Vitals: Assessment: Plan: * Treatment: * Images: * The named appointment provid er may or may not be the originator of this progress note, and it is not deemed complete until electronically signed by the appointment provider. Sign off status: Pending * Provider: Margoth Whiteside DPM Date: 0 10/27/2024 Generated for Jose alfonso/Cee/eTransmitting on: 1 07/11/2024 11:44 AM EST
--- OUTSIDE RECORDS SUMMARY | 2024-10-28 05:00 | XMS_ITS ---
Author Organization [facility] Address [address] [place] [address] Care Team Providers Care Biomass Boiler Operator Name Role Phone Trina Benitez Primary Care Provider Lucy Bautista [phone] Encounters Encounter Location Date Provider Diagnosis [facility] [address] [place] [address] 10/28/2024 Lucy Anderson Plan Of Treatment No Information Progress Notes * Dorene YEBOAHmarceloDOB:[birth year] (69 yo F)Acc No.[id number]:10/28/2024 Progress Note Patient: Jossie LAGUERRE Provider: Ja Anderson DPM :1955 A ge:69 Y S ex:Female Date:10/28/2024 Address:[address] [id number] Pcp:Trina Benitez Subjective: * Chief Complaints: * * Medical History: Objective: * Vitals: Assessment: Plan: * Treatment: * Images: * The named appointment provid er may or may not be the originator of this progress note, and it is not deemed complete until electronically signed by the appointment provider. Sign off status: Pending * Provider: Ja Anderson DPM Date: 0 10/28/2024 Generated for Printi ng/Faannalisag/eTransmitting on: 1 07/11/2024 11:43 AM EST
--- OUTSIDE RECORDS SUMMARY | 2024-12-06 04:30 | XMS_ITS ---
Author Organization [facility] Address [address] [place] [address] Care Team Providers Care Spray Applicator Name Role Phone Trina Benitez Primary Care Provider Lucy Bautista [phone] Encounters Encounter Location Date Provider Diagnosis [facility] [address] [place] [address] 12/06/2024 Lucy Anderson Plan Of Treatment No Information Progress Notes * Dorene YEBOAHmarceloDOB:[birth year] (69 yo F)Acc No.[id number]:12/06/2024 Progress Note Patient: Jossie LAGUERRE Provider: Ja Anderson DPM :1955 A ge:69 Y S ex:Female Date:12/06/2024 Address:[address] [place] Pcp:Trina Benitez Subjective: * Chief Complaints: * * Medical History: Objective: * Vitals: Assessment: Plan: * Treatment: * Images: * The named appointment provid er may or may not be the originator of this progress note, and it is not deemed complete until electronically signed by the appointment provider. Sign off status: Pending * Provider: Ja Anderson DPM Date: 0 12/06/2024 Generated for Rosemaryi ng/Faannalisag/eTransmitting on: 1 07/11/2024 11:43 AM EST
--- OUTSIDE RECORDS SUMMARY | 2025-01-24 04:30 | XMS_ITS ---
Author Organization [facility] Address [address] [place] [address] Care Team Providers Care Manager Research Name Role Phone Trina Benitez Primary Care Provider Lucy Bautista [phone] Encounters Encounter Location Date Provider Diagnosis [facility] [address] [place] [address] 01/24/2025 Lucy Anderson Plan Of Treatment No Information Progress Notes * Dorene YEBOAHmarceloDOB:[birth year] (69 yo F)Acc No.[id number]:01/24/2025 Progress Notes Patient: Jossie LAGUERRE Provider: Ja Anderson DPM :1955 A ge:69 Y S ex:Female Date:01/24/2025 Address:[address] [id number] Pcp:Trina Benitez Subjective: * Chief Complaints: * * Medical History: Objective: * Vitals: Assessment: Plan: * Treatment: * Images: * The named appointment provid er may or may not be the originator of this progress note, and it is not deemed complete until electronically signed by the appointment provider. Sign off status: Pending * Provider: Ja Anderson DPM Date: 0 01/24/2025 Generated for Rosemaryi ng/Faannalisag/eTransmitting on: 1 07/11/2024 11:43 AM EST
--- OUTSIDE RECORDS SUMMARY | 2025-02-09 11:00 | XMS_ITS ---
Author Organization [facility] Address [address] [place] [address] Care Team Providers Care Slitting Machine Operator Name Role Phone Trina Benitez Primary Care Provider Lucy Bautista [phone] Medications Medication SIG (Take, Route, Frequency, Duration) Notes Start Date End Date Status Zinc Active Physical Therapy . . . 2-3x/week; Duration: 3-4 weeks Not-Taking Extra Depth Diabetic Shoes with 3 Pair Custom heat-molded multi-density innersoles for 1 year Dx: Not-Taking Insulin 12 units Active Levoxyl Active Vitamin D3 Active Encounters Encounter Location Date Provider Diagnosis [facility] [address] [place] [address] 02/09/2025 Lucy Anderson Plan Of Treatment No Information Progress Notes * OBINNADorenemarceloDOB:[birth year] (69 yo F)Acc No.[id number]:02/09/2025 Progress Notes Patient: Jossie LAGUERRE Provider: Ja Anderson DPM :1955 A ge:69 Y S ex:Female Date:02/09/2025 Address:[address] [place] Pcp:Trina Benitez Subjective: * Chief Complaints: * [...] 02/09/2025 Generated for Jose alfonso/Cee/Antonieta on: 1 07/11/2024 11:43 AM EST
--- NOTE | 2025-05-10 10:29 | MHC.OFFVIS ---
Vital Signs 05/10/25 10:31 Height 6 ft 0.5 in Weight 284 lb BMI 38.0 BP 128/70 Blood Pressure Location Lt brachial Position Sitting Pulse 77 Pulse Oximetry (%) 98 Oxygen Delivery Method Room Air Intake Visit Reasons: follow up Intake Note: Patient presents for follow up on blood work, and other testing, follow up on throat pain. Dispensing Lead Required: No Accompanied by: Self / Same As Patient Allergies sulfamethoxazole (From Bactrim) Allergy (Mild, Verified 05/10/25 10:37) Hives trimethoprim (From Bactrim) Allergy (Mild, Verified 05/10/25 10:37) Hives HPI Comments Details: 69 year old female with a PMH of diabetes long standing, hypothryoidsim coming in for follow up. Today she reports ongoing dryness in the mouth. She has some joint pain in hands, xrays of hands shows osteopenia and osteoarthritis. Chest CT showed several new pulmonary nodules. PFTS showed mild restrictive defect due to body habitus CT abdomen pelvis showed no LAD, retroperitoneal masses. CRP normal ESR 34 She is going to [place] in 2 days and is unable to set up appointments with pulmonolgy and GI. Initial History: She reports symptoms have been there for 10 years, dry mouth dry skin. She has been losing teeth. She does not feel like she has dry eyes but declared she is legally blind in 2023,she has ni peripheral vision In July 2024, she had a feeling of sore throat but wa negative for all infectious etiologies. She went to the PCP for further testing of her throat, she had a CT scan which showed an enlarged and likely goiterous thyroid. 2. There is atrophy of the salivary glands. Consider Sjogren syndrome under the appropriate clinical circumstances CASSANDRA positive, 1: 1280 high titer, IgG 334, RF 40.1 CASSANDRA pattern nuclear centromere SSA SSB negative scleroderma antibody panel pending RNA polymerase 3 pending centromere antibody positive C3-C4 normal ROS: she endorses photosensitivity she gets painful canker sores. 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 She states she feels breathless when she climbs stairs no night sweats no weight loss, she endorses fatigue. she notices difficulty swallowing food Hand xrays show arthropathy of the PIPs DIPs, erosions noted in the DIPs. Vital signs reviewed Physical Examination CONSTITUITIONAL Patient alert and cooperative. Well appearing and in no apparent painful distress HEENT Conjunctiva and sclera clear. No lymphadenopathy. CHEST/RESPIRATORY SYSTEM Normal respiratory effort and able to speak in complete sentences. Clear to auscultation bilaterally. No crackles, rales, rhonchi, wheezes heard. CARDIAC SYSTEM Regular rate and rhythm. S1 and S2 heard no murmurs. Radial pulses intact bilaterally MSK Patient is able to make a fist bilaterally, she has skin thickening distal to all her PIPs, her nailfold capillaries look tortuous. She has tender PIPs on the right 3rd 4th and left 3rd 4th 5th. No swelling noted. Full range of motion in the upper extremities, limited range of motion in the lower extremities, particularly the hips, there is pain on internal rotation. There is swelling bilaterally nonpitting in the lower extremities SKIN Skin thickening noted distal to the PIPs on all fingers. 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, right leg worse than left [facility] Medical History (Updated 04/20/25 @ 09:05 by Cristin Mitchell MD) Centromere antibody positive Positive CASSANDRA (antinuclear antibody) Atrophy of salivary gland Thyroid goiter Vitamin D deficiency Subclinical hypothyroidism Obesity, morbid, BMI 40.0-49.9 Dual energy x-ray photon absorptiometry (DEXA) scan declined (~12/14/24) Colonoscopy refused (~12/14/24) Mammogram declined (~12/14/24) Hypothyroidism Hyperlipidemia LDL goal <70 CKD (chronic kidney disease) Edema Type 1 diabetes mellitus with hemoglobin A1c goal of less than 7.0% Throat pain Surgical History History of gastrointestinal surgery Family History Father Prostate cancer Mother Non Hodgkin's lymphoma H/O kidney removal Social History Housing: House Alcohol intake: current Alcohol intake frequency: does not drink Patient Tobacco Use Status: Never used Tobacco service: No Current occupational status: retired Cognitive needs: No Hearing needs: No Vision needs: Yes (rx glasses) Physical Exam Vital Signs: Last Vital Signs Pulse 77 05/10/25 10:31 BP 128/70 05/10/25 10:31 Pulse Ox 98 05/10/25 10:31 Oxygen Delivery Method Room Air 05/10/25 10:31 BMI result Body Mass Index 38.0 Assessment & Plan Assessment & Plan (1) Positive CASSANDRA (antinuclear antibody): Code(s): R76.89 - Other specified abnormal immunological findings in serum Category: Medical (2) Centromere antibody positive: Code(s): R76.89 - Other specified abnormal immunological findings in serum Category: Medical (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 She is presenting with dry mouth, has atrophy of the salivary glands, skin thickening distal to all PIPs, dental caries, difficulty swallowing. She does not endorse Raynaud's, she has some pinpoint nailfold capillary dilatation. Blood work shows a positive CASSANDRA high titer nuclear pattern, elevated IgG levels, negative SSA SSB Based on her history, physical exam and lab work I have a high suspicion suspicion for limited scleroderma/Sjogren's disease overlap. Today she reports ongoing dryness in the mouth. She has some joint pain in hands, xrays of hands shows osteopenia and osteoarthritis. Chest CT showed several new pulmonary nodules. PFTS showed mild restrictive defect due to body habitus CT abdomen pelvis showed no LAD, retroperitoneal masses. CRP normal ESR 34 1. I will like to get a biopsy of the salivary gland with immunofluorescence to rule out IgG4 related disease and to confirm the above diagnosis referring to ENT, this is pending and will be pursued once she returns from [place]. 2. I would also like pulmonology input to see if this any pulmonary involvement from limited scleroderma. I would also like to get an echocardiogram to assess for pulmonary hypertension. I would also like to have gastroenterology referral to perform upper endoscopy in light of this patient's history of esophageal dysphagia, and to look for findings of gastric antral vascular ectasia and gave in her stomach which can occur in limited scleroderma patients. 3. She is going to [place] in 2 days and will set up appts with GI and pulmonology upon return. Her echocardiogram will also be completed upon return. She is a very complex patient, and care is currently even more challenging as she has to go to [place] right after [place] of this year for 5 months. This will delay her care and the coordination of other specialties seeing her. she states she will come back and then follow-up with the specialists Discussed with her different DMARDS methotrexate vs mycophenlate mofetil for limited SSC, further discussion will be done when she returns. F/up on october 03 Coding Level of Care Code Est Pt Level 4 (96547) Diagnoses Positive CASSANDRA (antinuclear antibody) R76.89 Centromere antibody positive R76.89 Limited scleroderma M34.9
[2025-05-10 10:31] VITALS: BP 128/70; PULSE 77; O2SAT 98; BMI 38.0
--- OUTSIDE RECORDS SUMMARY | 2025-05-10 11:44 | XMS_ITS | Clinical Summary ---
Author Organization [facility] Address [address] [place], [place] [id number] Phone Care Team Providers Care Diamond Powder Mixer Name Role Phone Nic Mcghee MD Primary Care Provider [phone]- [phone] Allergies Active Allergy Reactions Criticality Noted Date [...] necrotizing fasciitis in the perineum. Our surgeon personnel security specialist and mental health case manager personnel security specialist are not comfortable assessing or intervening in [...] on her face). REC: Transfer tonight for surgical/mental health case manager evaluation Add clindamycin Increase Hydration Check lactate [...] in many years and can obtain this [id number] She does not check her blood sugars [...] HEMOGLOBIN A1C 10.0(H) 4.3 - 5.8 % [facility] Blood 01/31/2019 6:14 AM EDT 01/31/2019 6:46 AM EDT us Azalea Beyer MD LAB BLOOD BKR ORDERABLE S Final Result [id number] [id number] from Last 3 Months or Most Recently Relevant to Health Maintenance Insurance [facility] MEDICARE REPLACEMENT [address] [place] [address] [place] [place] [address] MEDICARE REPLACEMENT [facility] MEDICARE REPLACEMENT [facility] MEDICARE REPLACEMENT [facility] MEDICARE REPLACEMENT [facility] MEDICARE REPLACEMENT [facility] MEDICARE REPLACEMENT [facility] MEDICARE REPLACEMENT [facility] MEDICARE REPLACEMENT [facility] MEDICARE REPLACEMENT [facility] MEDICARE REPLACEMENT Advance Directives For more information, please contact: [phone] (9AM - 5PM [facility], Friday-Friday) * Full Code (Confirmed) (Latest Code Status on File) Date Activated Date Inactivated Comments 01/30/2019 6:08 AM 02/01/2019 12:23 AM Question Answer Comments Code Status Confirmed With: Patient Care Teams Diamond Powder Mixer Relationship Specialty Start Date End Date Nic Mcghee MD [address] [place] [id number] PCP - General Internal Medicine 08/02/24 Additional Source Comments The information contained in this document represents components of the legal health record. It is not the complete legal health record.[facility]
--- OUTSIDE RECORDS SUMMARY | 2025-05-10 11:44 | XMS_ITS | Encounter Summary ---
Author Organization [facility] Address [address] [place], [place] [address] Phone Care Team Providers Care Education Nurse Name Role Phone Pcp, Unknown Primary Care Provider Nic Munoz MD Primary Care Provider [phone]- [phone] Encounter Details Date Type Department Care Team ([facility] st Contact Info) Description 02/02/2019 Documentation [facility] Infectious Disease Virtual Department [address] [place] [address] [id number] Pcp, Not Required Social History Tobacco Use [...] documented as of this encounter Care Teams Education Nurse Relationship Specialty Start Date End Date Pcp, Unknown PCP - General 01/29/19 08/01/24 Nic Mcghee MD [address] [place] [phone] (work) PCP - General Internal Medicine 08/02/24 documented as of this encounter Additional Source Comments The information contained in this document represents components of the legal health record. It is not the complete legal health record.[facility]
--- OUTSIDE RECORDS SUMMARY | 2025-05-10 11:44 | XMS_ITS | Patient Health Record ---
Author Organization [facility] Address [address] [facility] [place] [address] Care Team Providers Care Digital Specialist Name Role Phone Trina Benitez Primary Care Provider Lucy Bautista Unavailable [phone] Demetrius Dorman Unavailable [phone] Allergies No Known Allergies Results Component Value [...] Polyneuropathy due to type 2 diabetes mellitus (765841091) Type 2 diabetes mellitus with diabetic polyneuropathy (E11.42) Active confirmed Problem Foot ulcer due to type 2 diabetes mellitus (3705487244171) Skin ulcer of toe of left foot with fat layer exposed (L97.522) Active confirmed Vital Signs Blood pressure diastolic 60 mm Hg 02/10/2025 Height 6 ft in 02/10/2025 Blood pressure systolic 126 mm Hg 02/10/2025 Weight 240 lbs 02/10/2025 BMI 32.55 kg/m2 02/10/2025 Procedures Procedure Date Ordered Date Performed Result Body Sit e 97146-[id number] NAIL, 6 OR MORE 12/09/2024 N/A 95759-VQPSFOM SKIN/TISSUE 12/09/2024 N/A 69891-MXAN SKIN LESIONS, 2 TO 4 12/09/2024 N/A Encounters Encounter Location Date Provider Diagnosis [address] [address] 12/09/2024 Lucy Anderson Type 2 diabetes mellitus with diabetic polyneuropathy E11.42 ; Tinea unguium B35.1 and Skin ulcer of toe of left foot with fat layer exposed L97.[address] [address] 02/10/2025 Lucy Anderson Type 2 diabetes mellitus with diabetic polyneuropathy E11.42 ; Tinea unguium B35.1 and Skin ulcer of toe of left foot with fat layer exposed L97.[address] [address] 10/19/2024 Lucy Anderson [address] [address] 01/04/2025 Lucy Anderson [address] [address] 02/09/2025 Lucy Anderson Assessments Encounter Date Diagnosis [...] X ray : Foot, left 3V 11/15/2020 [id number] NAIL, 6 OR MORE 12/09/2024 29569-[id number] SKIN/TISSUE 12/09/2024 71367-SLXV SKIN LESIONS, 2 TO 4 12/10/19 43247-JEEV SKIN LESIONS, 2 TO 4 02/22/20 Insurance Providers Payer Name Payer Address Payer Phone Subscriber Number Group Number Insured Name Patient Relationship to Insured Coverage Start Date Coverage End Date [employer] [address] [place] [phone] [id number] Jossie Melo Self - patient is the insured Medical (General) History Medical History History ICD Code Diabetic type l thyroid Measles Mumps Chicken pox Surgical History Surgery Date(Month/Year) infection 01/29/2019 dental 06/2021
--- OUTSIDE RECORDS SUMMARY | 2025-05-10 11:44 | XMS_ITS | Clinical Summary ---
Author Organization [facility] Address [address] [place] [address] Care Team Providers Care Computer Hardware Developer Name Role Phone Unavailable Primary Care Provider Unavailabl e Social History Tobacco Use Types Packs/Day Years Used Date Smoking Tobacco: Never Assessed Comments Unknown Sex and Gender Information Value Date Recorded Sex Assigned at Not on file Legal Sex Female 1:59 PM EST Gender Identity Not on file Sexual Orientation Not on file Plan of Treatment Health Maintenance Due Date Last Done Comments Blood Pressure 1955 Lipid Panel 1955 Depression Screening 1967 Hepatitis C Screening 09/09/1973 DTaP,Tdap,and Td Vaccines (1 - Tdap) 09/09/1974 Breast Cancer Screening 1995 CT Colonography 09/09/2000 Colonoscopy 09/09/2000 Colorectal Cancer Screening 09/09/2000 FIT 09/09/2000 FOBT 09/09/2000 Multitarget Stool DNA (Cologuard) 09/09/2000 Sigmoidoscopy 09/09/2000 Pneumococcal Vaccine: 50+ Ye ars (1 of 1 - PCV) 09/09/2005 Zoster Vaccine (1 of 2) 09/09/2005 Osteoporosis Screening 09/09/2020 COVID-19 Vaccine ( - 2024-2 6 season) 2025 Influenza Vaccine (#1) 2025 Meningococcal B Vaccines Aged Out No longer eligible based on patient's age to complete this topic Meningococcal Vaccines Aged Out No lo nger eligible based on patient's age to complete this topic
== END 2025-05-10 11:04 | disposition home or self-care (01) ==
LOC: HO.RHES 10:29
PROVIDERS: PCP Physician Assistant Medical; Visit Provider Student in an Organized Health Care Education/Training Program
DX: M34.9 Systemic sclerosis, unspecified (principal); R76.0 Raised antibody titer
CPT/HCPCS: 99213

== ENCOUNTER → 2025-05-10 10:29 | Outpatient (BNVA) | payer MEDICARE, SELFPAY | PROVIDERS: PCP Physician Assistant Medical; Visit Provider Student in an Organized Health Care Education/Training Program | DX: R76.89 Other specified abnormal immunological findings in serum (principal); M34.9 Systemic sclerosis, unspecified | CPT/HCPCS: 99212 ==